=== PATIENT | female | born 1940 | race Caucasian/White ===

== ENCOUNTER 2016-07-04 11:17 | Inpatient (IN) | payer MEDICARE, BC ==
--- NOTE | 2016-07-04 11:50 | ERNOTE ---
Dyspnea - General Presenting Symptoms: shortness of breath Time Seen by Provider: 07/04/16 11:28 Source: patient Exam Limitations: no limitations - Immun/Allergies/Home Medications Immunizations: IMMUNIZATION HX History of Influenza Vaccine No Hx Pneumococcal Vaccination No Allergies/Adverse Reactions: Allergies Penicillins Allergy (Severe, Verified 07/04/16 11:26) HIVES, TONGUE AND LIP SWELLING baclofen Adverse Reaction (Verified 07/04/16 15:49) Home Medications: HOME MEDICATIONS Aspirin [Aspirin Enteric Coated] 81 mg PO DAILY 07/23/14 [Last Taken Unknown] Calcium Carbonate/Vitamin D3 [Calcium 600 + Vit D 400 Tablet] 1 tab PO QID 07/23 [Last Taken Unknown] Cyanocobalamin [Vitamin B-12] 1,000 mcg PO DAILY 07/23/14 [Last Taken Unknown] Docusate Sodium [Colace] 100 mg PO DAILY 07/23/14 [Last Taken Unknown] Losartan Potassium [Cozaar] 12.5 mg PO DAILY 07/23/14 [Last Taken Unknown] Omeprazole [Prilosec] 40 mg PO DAILY 07/23/14 [Last Taken Unknown] glipiZIDE [Glucotrol] 2.5 mg PO BIDAC 07/23/14 [Last Taken Unknown] metFORMIN HCL [Glucophage] 250 mg PO BIDWM 07/23/14 [Last Taken Unknown] Albuterol Sulfate [Proair Hfa] 2 puff IH Q4H PRN 02/28/15 [Last Taken Unknown] Montelukast Sodium [Singulair] 10 mg PO DAILY #30 tab 03/05/15 [Last Taken Unknown] Acetaminophen [Tylenol] 500 - 1,000 mg PO Q6H PRN 08/02/15 [Last Taken Unknown] Albuterol Sulfate 3 ml IH Q4H PRN 08/02/15 [Last Taken Unknown] Blood Sugar Diagnostic, Drum [Accu-Chek Compact] 1 each MC DAILY 08/02/15 [Last Taken Unknown] Fexofenadine/Pseudoephedrine [Jazmyne-D 24 Hour Tablet] 1 each PO DAILY [Last Taken Unknown] Albuterol Sulfate [Albuterol Sulfate 2.5 MG/0.5ML] 1 vial IH Q4H PRN 07/04/16 [ Last Taken Unknown] Atenolol [Tenormin] 25 mg PO BID 07/04/16 [Last Taken Unknown] Budesonide [Pulmicort Respules] 0.5 mg IH DAILY 07/04/16 [Last Taken Unknown] Cholecalciferol (Vitamin D3) [Vitamin D3] 5,000 unit PO DAILY 07/04/16 [Last Taken Unknown] Fluticasone/Salmeterol [Advair 250-50 Diskus] 1 puff IH BID 07/04/16 [Last Taken Unknown] Halobetasol Propionate [Ultravate] 15 gm TP DAILY 07/04/16 [Last Taken Unknown] Magnesium 250 mg PO QID 07/04/16 [Last Taken Unknown] Naproxen [Naprosyn] 500 mg PO BID 07/04/16 [Last Taken Unknown] Ropinirole HCl 5 mg PO HS 07/04/16 [Last Taken Unknown] Temazepam [Restoril] 30 mg PO HS 07/04/16 [Last Taken Unknown] Tizanidine HCl 2 mg PO BID 07/04/16 [Last Taken Unknown] - History of Present Illness Narrative: Patient started getting sick three days ago with a sudden onset of shortness of breath and diarrhea. The diarrhea was about five times a day but has resolved now, no BM today, no vomiting, generalized mild abdominal pain. The shortness of breath is worse with minimal exertion,she can barely make it across the room Date (Duration): 07/01/16 Time (Timing): 15:00 Initiating event: Reports: upper resp illness. Denies: out of meds Frequency of episodes: Reports: no prior episodes Associated Symptoms-Dyspnea: Reports: fever/chills, cough. Denies: chest pain/ discomfort Review of Systems - Review of Systems Constitutional: Present: fever, chills. Absent: recent illness Respiratory: Present: See HPI, cough - slight,dry Cardiology: Absent: chest pain Gastrointestinal/Abdominal: Present: See HPI. Absent: nausea, vomiting Genitourinary: Present: dysuria - Patient's Past Medical History Patient History - Medical: Arthritis, Diabetes Type 2, Other Patient History - Cardiac/Respiratory: Asthma, Hypertension, Hyperlipidemia Patient History - Cancer: Leukemia - CLL Patient History - Surgical Procedures: Appendectomy, Cholecystectomy, Hysterectomy, Other - Social History Living Situations: spouse Smoking Status: Former smoker Alcohol Use: occasionally - Immunizations Hx Pneumococcal Vaccination: No History of Influenza Vaccine: No Physical Exam - Physical Exam General Appearance: Present: wd/wn, alert, no apparent distress Ears, Nose, Throat: Present: normal pharynx Neck: Present: normal inspection Respiratory: Present: no accessory muscle use, chest nontender, decreased breath sounds, rales - few left base Cardiovascular/Chest: Present: regular rate, rhythm, no murmur Gastrointestinal/Abdominal: Present: normal bowel sounds, nontender, soft, distended Extremity Exam: Present: pedal edema - trace Neurological Exam: Present: alert, oriented, normal mood/affect Skin Exam: Present: normal color, warm/dry ED Progress - Results and Orders Patient's Lab Results:: I have reviewed the patient's lab results. - Vital Signs Patient's Vital Signs:: I have reviewed the patient's vital signs. Vital Signs: Vital Signs 07/04/16 07/04/16 11:21 11:25 Temperature 36.4 C L Pulse Rate 74 74 Respiratory 24 H Rate Blood Pressure 124/61 O2 Sat by Pulse 88 L Oximetry - EKG EKG: NSR, unchanged from - 06/19/16, other - no acute changes EKG read: Interp. by me - X-Ray X-Ray #1 X-Ray: chest - left lower lobe pneumonia Interpretation: Reviewed by me X-Ray #2 X-Ray: abdomen - no acute findings Interpretation: Reviewed by me - CT/Ultrasound CT/Ultrasound Narrative: CT chest: no PE, see report - Progress/Reassessment Chief Complaint: Dyspnea Progress Note-Subjective: 07/04/16 12:33 discussed results and plan to get CT 07/04/16 13:48 discussed patient with richard Moffett to admit for pneumonia CT pending, start IV fluid 07/04/16 14:31 patient feeling better after neb treatment, discussed CT results pneumonia severity index 95 (class IV) Departure Clinical Impression: Pneumonia Qualifiers: Pneumonia type: due to unspecified organism Laterality: left Lung location: lower lobe of lung Qualified Code(s): J18.1 - Lobar pneumonia, unspecified organism - Departure Disposition: [facility] Condition: Fair
[2016-07-04 11:55] LABS: Hematocrit 34.6 % (37.0-47.0); Hemoglobin 11.4 gm/dL (12.5-16.0); Mean Cell Volume 92.8 fl (78-100); Mean Corpuscular Hemoglobin 30.6 pg (27-31); Mean Corpuscular Hgb Conc 32.9 g/dl (32-36); Mean Platelet Volume 10.8 fl (6.0-9.5); Platelet Count 261 K/mm3 (150-450); Red Blood Count 3.73 M/mm3 (4.2-5.4); Red Cell Distribution Width 14.3 % (11.5-14.0)
[2016-07-04 12:00] LABS: White Blood Count 34.4 K/mm3 (4.0-10.5)
[2016-07-04 12:01] LABS: Total Cells Counted 100
[2016-07-04 12:09] LABS: Troponin I Less than 0.017 ng/ml (0.00-0.10)
[2016-07-04 12:11] LABS: ALT 25 U/L (19-67); AST 13 U/L (0-48); Albumin * 2.6 gm/dl (3.4-5.0); Alkaline Phosphatase * 112 U/L (50-170); Anion Gap 12.4 mmol/L (6.8-13.8); BNP * 1418 pg/mL (5-550); BUN/Creatinine Ratio 35.9 (9.0-21.6); Bilirubin, Total 0.4 mg/dL (0.0-1.1); Blood Urea Nitrogen 55 mg/dL (3-23); Ca. Corrected For Albumin 9.3 mg/dL (8.4-10.2); Calcium * 8.5 mg/dL (7.9-10.9); Carbon Dioxide 27.6 mmol/L (24-32.6); Chloride 102 mmol/L (97-106); Glucose * 117 mg/dL (70-110); Sodium 138 mmol/L (132-142); Total Protein 6.3 gm/dL (6.2-8.2)
[2016-07-04 12:16] LABS: Band 9 % (0-2.0); Lymphocyte 18 % (20-51); Monocyte 2 % (0-9); Neutrophil 71 % (42-75); Neutrophil # 24.4 K/mm3 (1.3-6.0)
[2016-07-04 12:18] LABS: Platelet Estimate Normal (NORMAL)
[2016-07-04 12:19] LABS: Toxic Granulation 2+
[2016-07-04 12:20] LABS: Dohle Bodies 1+; RBC Morphology Normal (NORMAL)
[2016-07-04] MEDS ORDERED: ALBUTEROL SULFATE 2.5 MG/0.5 ML VIAL.NEB IH ONE ×2 (12:32→12:34)
[2016-07-04] MEDS ORDERED: LEVOFLOXACIN/D5W 750 MG/150 ML BAG IV SCH (12:45)
[2016-07-04] MEDS ORDERED: NORMAL SALINE 1,000 ML IV ONE (13:49)
[2016-07-04] MEDS ORDERED: ACETAMINOPHEN 325 MG TABLET PO PRN (15:08)
--- OUTSIDE RECORDS SUMMARY | 2016-07-04 15:58 | XMS REPORT | Continuity of Care Document ---
:1940 Author Organization [facility] ([facility]) [place] [address] Phone [phone] Care Team Providers Name Role Phone Davis Irby Primary Care Provider [phone] Source Comments This disclosure is being made pursuant to the Care Everywhere program, applicable federal and state laws, and may not contain all informaitonavailable regarding this patient.[facility] ([facility]) Active Allergies and Adverse Reactions Allergen Noted Date Severity Reactions Comments Aspirin Stomach Pain Penicillin G Angioedema Current Medications Prescription Sig. Disp. Refills Start Date End Date Status atorvastatin 40 mg 40 mg daily 3 03/09/2015 Active tablet PULMICORT 1 mg/2 mL 11 03/08/2015 Active nebulizer suspension benzonatate 100 mg 0 02/01/2015 Active capsule SUPPLY FREESTYLE LITE 3 02/12/2015 Active test strips budesonide 0.5 mg/2 0 02/01/2015 Active mL nebulizer suspension glipiZIDE 5 mg tablet 3 02/12/2015 Active HYDROcodone-acetamino 0 03/05/2015 Active phen 5-325 mg per tablet SUPPLY FREESTYLE 3 02/12/2015 Active lancets losartan 25 mg tablet 11 03/29/2015 Active metFORMIN 500 mg 2 02/12/2015 Active tablet montelukast 10 mg 11 03/29/2015 Active tablet omeprazole 40 mg Patient is 11 03/09/2015 Active enteric coated taking this capsule over the counter. baclofen 20 mg tablet Take 20 mg by Active mouth 3 times daily. rOPINIRole 5 mg Take 5 mg by Active tablet mouth at bedtime. clindamycin 300 mg 0 03/25/2015 06/19/2016 Discontinued capsule predniSONE 20 mg 0 03/05/2015 06/19/2016 Discontinued tablet trimethoprim-sulfamet 0 03/25/2015 06/19/2016 Discontinued hoxazole 160-800 mg per tablet Active Problems Problem Noted Date CLL (chronic lymphocytic leukemia) 06/28/2015 Most Recent Encounters Date Type Specialty Providers Description 06/19/2016 Hospital Encounter Hematology and Edward Dumas Dx: SOB ( shortness Oncology O, MD of breath) (Primary Dx) Social History Tobacco Use Types Packs/Day Years Used Date Former Smoker Smokeless Tobacco: Never Used Last Filed Vital Signs Vital Sign Reading Time Taken Blood Pressure 140/86 06/19/2016 9:57 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 Pulse 104 06/19/2016 9:57 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 WORKER Temperature 36.6 C (97.9 F) 06/19/2016 9:57 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 Respiratory Rate 18 06/19/2016 9:57 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 WORKER Height 1.575 m (5' 2") 06/19/2016 9:57 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 WORKER Weight 76.204 kg (168 lb) 06/19/2016 9:57 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 WORKER Body Mass Index 30.72 06/19/2016 9:57 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 WORKER Oxygen Saturation 96% 06/19/2016 9:57 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 WORKER Plan of Care Date Type Specialty Providers Description 08/02/2016 Appointment Heart and Vascular [facility], Chief Comp: Patient MD Reported Reason For [address] Visit [place] [phone] (Fax) Health Maintenance Due Date Last Done Comments Hepatitis B Vaccine (1 of 3 - Primary Series) 1940 Tdap Vaccine 11/09/1951 Lipid Disorder Screening 1958 Td Vaccine 1958 Mammogram 1980 Colonoscopy 1990 Zoster Vaccine 2000 Osteoporosis Screening (DXA Bone Density) 2005 Pneumococcal Vaccine (1 of 2 - PCV13) 2005 Influenza Vaccine: Seasonal (#1) 12/06/2015 Results from Last 3 Months Not on file
--- OUTSIDE RECORDS SUMMARY | 2016-07-04 16:25 | XMS REPORT | Continuity of Care Document ---
:1940 Author Organization [facility] ([facility]) Address [place] [address] [place] [address] Phone [phone] Care Team Providers Name Role Phone Davis Irby Primary Care Provider [phone] Source Comments This disclosure is being made pursuant to the Care Everywhere program, applicable federal and state laws, and may not contain all informaitonavailable regarding this patient.[facility] ([facility]) Active Allergies and Adverse Reactions Allergen Noted [...] Taken Blood Pressure 140/86 06/19/2016 9:57 AM FLOOR HAND Pulse 104 06/19/2016 9:57 AM FLOOR HAND Temperature 36.6 C (97.9 F) 06/19/2016 9:57 AM FLOOR HAND Respiratory Rate 18 06/19/2016 9:57 AM FLOOR HAND Height 1.575 m (5' 2") 06/19/2016 9:57 AM FLOOR HAND Weight 76.204 kg (168 lb) 06/19/2016 9:57 AM FLOOR HAND Body Mass Index 30.72 06/19/2016 9:57 AM FLOOR HAND Oxygen Saturation 96% 06/19/2016 9:57 AM FLOOR HAND Plan of Care Date Type Specialty Providers Description 08/02/2016 Appointment Heart and Vascular [facility], Chief Comp: Patient MD Reported Reason For [address] Visit [place] [phone] (Fax) Health Maintenance Due Date Last Done [...]
--- NOTE | 2016-07-04 17:36 | HP ---
Chief Complaint - Chief Complaint Date of Service: 07/04/16 Chief Complaint: fever, chills , pleuritic chest pain from 07/01/16. History of Present Illness: The patient is a 75-year-old WF with a H/O HTN, T2DM, GERD, RLS, CLL, chronic LBP, asthma/COPD who started having fevers, chills since 07/01/2016. This was followed by diarrhea and left-sided pleuritic chest pain which gradually worsened which prompted her to come to the ER. X-rays revealed left lower lobe pneumonia. Because of persistent hypoxia, patient underwent a CT per PE protocol on 2016. This confirmed the presence of left lower lobe pneumonia and no evidence of a PE. Other significant findings were WBC 34.4K, 9% bands, BUN/CR 55/1.53.[Per patient WBC runs about 20 K due to CLL] I Patient was admitted for further care and treatment. 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 Insomnia. Additional Info: PAST SURGICAL HISTORY: Tonsillectomy, appendectomy, cholecystectomy, hysterectomy, LT breast lumpectomy , colonoscopy. Patient History - Other: None LMP (females 10-50): Menopausal - Family History Mother Family History - Medical: - 77stroke from receiving RX for CLL Father Family History - Medical: - 70's - multiple myeloma Brother Family History - Medical: - 60glioblastoma - Social History Living Situations: home Abuse History: No History of abuse Psych History: No pertinent hx Smoking Status: Former smoker - /2 PPDx 53 years; quit in 2009. Have you smoked in the past 12 months: No Alcohol Use: occasionally Drug Use: none - Immunizations Hx Pneumococcal Vaccination: No History of Influenza Vaccine: No Review Of Systems (GEN) - Review of Systems Generalized/Overall Review: Present: Weakness, Chills, Fever Respiratory: Present: Cough, Shortness of Breath, Other - pleuritic CP Abdominal: Present: Diarrhea - poor oral appetite.. Absent: Nausea, Vomiting Immunizations: IMMUNIZATION HX History of Influenza Vaccine No Hx Pneumococcal Vaccination No Allergies/Adverse Reactions: Allergies Allergy/AdvReac Type Severity Reaction Status Date / Time Penicillins Allergy Severe HIVES, Verified 07/04/16 11:26 TONGUE AND LIP SWELLING baclofen AdvReac Verified 07/04/16 15:49 Home Medications: HOME MEDICATIONS Aspirin [Aspirin Enteric Coated] 81 mg PO DAILY 07/23/14 [Last Taken Unknown] Calcium Carbonate/Vitamin D3 [Calcium 600 + Vit D 400 Tablet] 1 tab PO QID 07/23 [Last Taken Unknown] Cyanocobalamin [Vitamin B-12] 1,000 mcg PO DAILY 07/23/14 [Last Taken Unknown] Docusate Sodium [Colace] 100 mg PO DAILY 07/23/14 [Last Taken Unknown] Losartan Potassium [Cozaar] 12.5 mg PO DAILY 07/23/14 [Last Taken Unknown] Omeprazole [Prilosec] 40 mg PO DAILY 07/23/14 [Last Taken Unknown] glipiZIDE [Glucotrol] 2.5 mg PO BIDAC 07/23/14 [Last Taken Unknown] metFORMIN HCL [Glucophage] 250 mg PO BIDWM 07/23/14 [Last Taken Unknown] Albuterol Sulfate [Proair Hfa] 2 puff IH Q4H PRN 02/28/15 [Last Taken Unknown] Montelukast Sodium [Singulair] 10 mg PO DAILY #30 tab 03/05/15 [Last Taken Unknown] Acetaminophen [Tylenol] 500 - 1,000 mg PO Q6H PRN 08/02/15 [Last Taken Unknown] Albuterol Sulfate 3 ml IH Q4H PRN 08/02/15 [Last Taken Unknown] Blood Sugar Diagnostic, Drum [Accu-Chek Compact] 1 each MC DAILY 08/02/15 [Last Taken Unknown] Fexofenadine/Pseudoephedrine [Jazmyne-D 24 Hour Tablet] 1 each PO DAILY [Last Taken Unknown] Albuterol Sulfate [Albuterol Sulfate 2.5 MG/0.5ML] 1 vial IH Q4H PRN 07/04/16 [ Last Taken Unknown] Atenolol [Tenormin] 25 mg PO BID 07/04/16 [Last Taken Unknown] Budesonide [Pulmicort Respules] 0.5 mg IH DAILY 07/04/16 [Last Taken Unknown] Cholecalciferol (Vitamin D3) [Vitamin D3] 5,000 unit PO DAILY 07/04/16 [Last Taken Unknown] Fluticasone/Salmeterol [Advair 250-50 Diskus] 1 puff IH BID 07/04/16 [Last Taken Unknown] Halobetasol Propionate [Ultravate] 15 gm TP DAILY 07/04/16 [Last Taken Unknown] Magnesium 250 mg PO QID 07/04/16 [Last Taken Unknown] Naproxen [Naprosyn] 500 mg PO BID 07/04/16 [Last Taken Unknown] Ropinirole HCl 5 mg PO HS 07/04/16 [Last Taken Unknown] Temazepam [Restoril] 30 mg PO HS 07/04/16 [Last Taken Unknown] Tizanidine HCl 2 mg PO BID 07/04/16 [Last Taken Unknown] Exam - Exam Vital Signs: Vital Signs - Last Taken Temp 36.4 C L 07/04/16 15:49 Pulse 72 07/04/16 15:49 Resp 24 H 07/04/16 15:49 BP 134/73 07/04/16 15:49 Pulse Ox 96 07/04/16 15:49 Constitutional: Present: Elderly, Overweight - looks ill on O2 ENT Exam: Present: hearing grossly normal, moist mucous membranes Eye Exam: bilateral eye: normal inspection Neck: Present: normal inspection, trachea midline Respiratory: Present: rales - RT side of lung. Absent: no accessory muscle use Cardiovascular/Chest: Present: regular rate, rhythm. Absent: tachycardia Peripheral Pulses: carotid (R): 2+, carotid (L): 2+ Abdomen: Present: Normal bowel sounds, soft, nontender, nondistended, obese /Rectal: Present: Exam deferred Extremity: Present: normal range of motion, normal inspection, no pedal edema Skin Exam: Present: normal color, warm/dry Neurologic: Present: alert, oriented x 3 Appearance: Present: appropriate appearance, appropriate insight, neat, no memory impairment Eye contact: Present: cooperative, good eye contact, normal speech Diagnostic Studies: Laboratory Tests 07/04/16 11:44 WBC 34.4 H Hgb 11.4 L Hct 34.6 L Neutrophils % (Manual) 71 Band Neuts % (Manual) 9 H Lymphocytes % (Manual) 18 L 07/04/16 11:44 Plasma Sodium 138 Potassium 4.0 Chloride 102 Carbon Dioxide 27.6 BUN 55 H D Creatinine 1.53 H D Est GFR (Non-Af Amer) 35 L D Calcium Adj for Albumin 9.3 Total Bilirubin 0.4 AST 13 ALT 25 Alkaline Phosphatase 112 Total Protein 6.3 Albumin 2.6 L 07/04/16 07/04/16 11:30 11:44 D-Dimer 1.26 H Lactic Acid, Venous 1.1 Troponin I < 0.017 B-Natriuretic Peptide 1418 H Influenza Type A Ag Negative Influenza Type B Ag Negative CXR: PA and lateral: 07/04/2016: 11:36 There is dense consolidation with air bronchograms in the left lower lobe. Recommend follow-up CXR to resolution of this consolidation to exclude underlying pathology. Borderline cardiomegaly. Scattered granuloma. Vascularity is prominent but WNL. IMPRESSION: LEFT LOWER LOBE PNEUMONIA. Chest CT per PE protocol: 07/04/2016: 12:29 IMPRESSION: 1. No definite CT evidence for acute PE. 2. Suboptimal opacification of the thoracic aorta for angiographic evaluation without obvious acute findings. 3. Left lower lobe consolidation. Differential diagnoses includes pneumonia versus malignancy. Correlate clinically. Assessment/Plan - Narrative Narrative: ASSESSMENT/PLAN: 1. Left lower lobe pneumonia: Levofloxacin 750 mg IV daily. Sputum for C/S. Cornet every 2 hours while awake. Recheck CBC on 07/05/2016 2. Dehydration: Patient has elevated BUN/CR 55/1.53 most likely secondary to poor oral intake/ diarrhea-on normal saline at 100 mL an hour. Recheck BMP on 07/05/2016. 3. Hypoxia: On 2 L O2; respiratory treatments with DuoNeb 4 times a day as needed. 4. Chronic medical problems: Other chronic medical problems including HTN, T2 DM, chronic LBP, CLL, GERD reviewed and stable.
[2016-07-04] MEDS ORDERED: ACETAMINOPHEN 500 MG TABLET PO PRN (17:43)
[2016-07-04] MEDS: ALBUTEROL SULFATE 2.5 MG/0.5 ML VIAL.NEB IH SCH (20:10)
[2016-07-04] MEDS: rOPINIRole HCL 1 MG TABLET PO SCH (21:20)
[2016-07-04] MEDS: TEMAZEPAM 15 MG CAPSULE PO SCH (21:22)
[2016-07-04] MEDS ORDERED: NORMAL SALINE 1,000 ML IV PRN (22:22)
[2016-07-05] MEDS ORDERED: DEXTROSE 50%-WATER 50 ML SYRG IV ONE (03:57)
[2016-07-05] MEDS: ALBUTEROL SULFATE 2.5 MG/0.5 ML VIAL.NEB IH PRN ×2 (05:07→22:47)
[2016-07-05 05:36] LABS: Hematocrit 36.9 % (37.0-47.0); Hemoglobin 11.4 gm/dL (12.5-16.0); Mean Cell Volume 94.4 fl (78-100); Mean Corpuscular Hemoglobin 29.2 pg (27-31); Mean Corpuscular Hgb Conc 30.9 g/dl (32-36); Mean Platelet Volume 10.2 fl (6.0-9.5); Platelet Count 284 K/mm3 (150-450); Red Blood Count 3.91 M/mm3 (4.2-5.4); Red Cell Distribution Width 14.6 % (11.5-14.0); White Blood Count 23.9 K/mm3 (4.0-10.5)
[2016-07-05] MEDS: DEXTROSE 5%-0.5 NORMAL SALINE 1,000 ML IV PRN ×2 (05:38→16:09)
[2016-07-05 05:44] LABS: Anion Gap 10.3 mmol/L (6.8-13.8); BUN/Creatinine Ratio 30.6 (9.0-21.6); Calcium * 8.8 mg/dL (7.9-10.9); Carbon Dioxide 27.3 mmol/L (24-32.6); Estimated Creat Clear 34.6; Potassium 3.6 mmol/L (3.4-4.6); Total Cells Counted 100
[2016-07-05 06:10] LABS: Atypical (Reactive) Lymph 6 % (0-2); Band 1 % (0-2.0); Eosinophil 1 % (0-3); Lymphocyte 44 % (20-51); Monocyte 4 % (0-9); Neutrophil 44 % (42-75); Neutrophil # 10.5 K/mm3 (1.3-6.0)
[2016-07-05 06:11] LABS: Platelet Estimate Normal (NORMAL); RBC Morphology Normal (NORMAL)
[2016-07-05] MEDS ORDERED: ALBUTEROL SULFATE 200 PUFF INHALER IH PRN (06:23)
[2016-07-05] MEDS: PANTOPRAZOLE SODIUM 40 MG TABLET.EC PO SCH (07:01)
[2016-07-05] MEDS: ALBUTEROL SULFATE 2.5 MG/0.5 ML VIAL.NEB IH SCH ×3 (07:16→19:55)
[2016-07-05] MEDS ORDERED: BUDESONIDE 0.5 MG/2 ML VIAL.NEB IH SCH (09:00)
[2016-07-05] MEDS: ASPIRIN 81 MG TABLET.DR PO SCH (09:43)
[2016-07-05] MEDS: LOSARTAN POTASSIUM 50 MG TABLET PO SCH (09:43)
[2016-07-05] MEDS: FLUTICASONE/SALMETEROL 14 PUFF DISK.W.DEV IH SCH ×2 (09:43→20:11)
[2016-07-05] MEDS ORDERED: LEVOFLOXACIN/D5W 750 MG in Premix Bag 1 BAG IV SCH (13:00)
[2016-07-05] MEDS: SACCHAROMYCES BOULARDII 250 MG CAPSULE PO SCH ×2 (14:22→20:10)
--- NOTE | 2016-07-05 16:15 | PN ---
Subjective - Date and Time Seen Date: 07/05/16 Time: 16:14 Subjective Narrative: feels better, appetite and pleuritic chest pain are gradually improving. Able to ambulate. Objective - Review of Systems Generalized/Overall Review: Reports: Weakness, Fatigue Respiratory: Reports: Cough, Shortness of Breath Cardiac: Reports: Chest Pain. Denies: Edema, Palpitations Abdominal: Denies: Nausea, Vomiting - Vitals Vitals: Last Vital Signs Temp 36.4 C L 07/05/16 14:48 Pulse 92 07/05/16 14:48 Resp 20 07/05/16 14:48 BP 145/79 07/05/16 14:48 Pulse Ox 93 07/05/16 14:48 - Abnormal Lab Findings Abnormal Lab Findings: Laboratory Tests 07/05/16 05:05 WBC 23.9 H D Hgb 11.4 L Hct 36.9 L Plt Count 284 Neutrophils % (Manual) 44 Band Neuts % (Manual) 1 07/05/16 05:05 Plasma Sodium 139 Potassium 3.6 Chloride 105 Carbon Dioxide 27.3 BUN 34 H Creatinine 1.11 Est GFR (Non-Af Amer) 51 L D Calcium 8.8 - Exam Constitutional: Present: Elderly, Overweight - alert and oriented x3, cooperative. ENT Exam: Present: hearing grossly normal, moist mucous membranes Neck: Present: supple, trachea midline Respiratory: Present: crackles - LT lower lung; RT lung clear. Cardiovascular/Chest: Present: regular rate, rhythm. Absent: tachycardia Abdomen: Present: Normal bowel sounds, soft, nontender Extremity: Present: non-tender, no pedal edema Thoughts: Present: normal mood /affect Assessment/Plan Plan Narrative: 1. Left lower lobe pneumonia: Levofloxacin 750 mg IV daily day #2. Continue Cornet every 2 hours. WBC has improved from 34.4[07/04/16] --> 23.9[07/05/16]. DVT prophylaxis on Lovenox. 2. Dehydration: Most likely secondary to poor oral intake/diarrhea-on normal saline at 100 mL an hour. BUN/CR 55/1.53[07/04/2016] has improved with IV fluids to 34/1.11[05/2016] 3. Hypoxia: On 2 L O2- Respiratory to try to wean to room air ; respiratory treatments with DuoNeb 4 times a day as needed. 4. Chronic medical problems: Other chronic medical problems including HTN, T2 DM, chronic LBP, CLL, GERD reviewed and stable.
[2016-07-05] MEDS: ACETAMINOPHEN 325 MG TABLET PO PRN (20:09)
[2016-07-05] MEDS: rOPINIRole HCL 1 MG TABLET PO SCH (20:11)
[2016-07-05] MEDS: TEMAZEPAM 15 MG CAPSULE PO SCH (20:51)
[2016-07-06 06:19] LABS: Anion Gap 13.6 mmol/L (6.8-13.8); BUN/Creatinine Ratio 17.6 (9.0-21.6); Calcium * 9.5 mg/dL (7.9-10.9); Carbon Dioxide 26.1 mmol/L (24-32.6); Estimated Creat Clear 37.7; Potassium 3.7 mmol/L (3.4-4.6)
[2016-07-06] MEDS: PANTOPRAZOLE SODIUM 40 MG TABLET.EC PO SCH (06:49)
[2016-07-06] MEDS: ALBUTEROL SULFATE 2.5 MG/0.5 ML VIAL.NEB IH SCH ×3 (07:23→18:22)
[2016-07-06] MEDS: DEXTROSE 5%-0.5 NORMAL SALINE 1,000 ML IV PRN (09:06)
[2016-07-06] MEDS: FLUTICASONE/SALMETEROL 14 PUFF DISK.W.DEV IH SCH ×2 (09:08→21:24)
[2016-07-06] MEDS: LOSARTAN POTASSIUM 50 MG TABLET PO SCH (09:09)
[2016-07-06] MEDS: ASPIRIN 81 MG TABLET.DR PO SCH (09:09)
[2016-07-06] MEDS: SACCHAROMYCES BOULARDII 250 MG CAPSULE PO SCH ×2 (09:09→21:24)
[2016-07-06] MEDS ORDERED: ALBUTEROL SULFATE 2.5 MG/0.5 ML VIAL.NEB IH PRN (11:26)
--- NOTE | 2016-07-06 11:32 | PN ---
Subjective - Date and Time Seen Date: 07/06/16 Time: 06:40 Subjective Narrative: SOB better. Cough was never severe, but it is also better. CHIN better. Good appetite. Objective - Review of Systems Generalized/Overall Review: Reports: Malaise EENTM: Reports: No Symptoms Reported Respiratory: Reports: Cough, Shortness of Breath Cardiac: Reports: No Symptoms Reported Abdominal: Reports: No Symptoms Reported Genitourinary Symptoms: Reports: No Symptoms Reported Musculoskeletal Complaints: Reports: No Symptoms Reported Neurological: Reports: No Symptoms Reported Skin: Reports: No Symptoms Reported Endocrine: Reports: No Symptoms Reported Misc: All systems neg except as marked - Vitals Vitals: Last Vital Signs Selected Entries 07/06/16 02:42 Temperature 36.9 C Temperature Oral Source Pulse Rate 104 H Respiratory 18 Rate Respiratory Normal Depth Blood Pressure 141/84 Blood Pressure Sitting Position O2 Sat by Pulse 92 Oximetry Oxygen Delivery Room Air Method - Abnormal Lab Findings Abnormal Lab Findings: Abnormal Lab Results 07/06/16 Range/Units 05:59 Est GFR (Non-Af Amer) 56 L (60-130) mL/min Random Glucose 134 H D (70-110) mg/dL - Exam Constitutional: Present: Alert, Oriented x3, Cooperative, Well developed, Well nourished, No distress - slightly sob at rest ENT Exam: Present: normal ENT inspection, hearing grossly normal Neck: Present: normal inspection Respiratory: Present: lungs clear, no respiratory distress Cardiovascular/Chest: Present: regular rate, rhythm, no murmur Abdomen: Present: Normal bowel sounds, soft, nontender, nondistended, no rebound tenderness, no hepatospenomegaly, no masses Extremity: Present: normal inspection, no pedal edema Skin Exam: Present: normal color, warm/dry, no cyanosis Neurologic: Present: alert, oriented x 3 Appearance: Present: appropriate appearance, appropriate insight, neat, no memory impairment Eye contact: Present: cooperative, good eye contact, normal speech Thoughts: Present: normal thought pattern Assessment/Plan Plan Narrative: Continue antibiotics. Follow labs. Home in 1-2 days. - Problems/Diagnosis (1) Pneumonia Problem: Acute Qualifiers: Pneumonia type: due to unspecified organism Laterality: left Lung location: lower lobe of lung Qualified Code(s): J18.1 - Lobar pneumonia, unspecified organism (2) CLL (chronic lymphocytic leukemia) Problem: Chronic (3) Diabetes Problem: Chronic Qualifiers: Diabetes mellitus type: type 2 Diabetes mellitus complication status: without complication Diabetes mellitus correction insulin use: without extermination supervisor use Qualified Code(s): E11.9 - Type 2 diabetes mellitus without complications
[2016-07-06] MEDS ORDERED: LEVOFLOXACIN/D5W 150 ML IV SCH (13:00)
[2016-07-06] MEDS: ACETAMINOPHEN 325 MG TABLET PO PRN (13:31)
[2016-07-06 14:42] LABS: BUN/Creatinine Ratio 15.9 (9.0-21.6)
[2016-07-06] MEDS ORDERED: ENOXAPARIN SODIUM 40 MG/0.4 ML SYRG SC SCH (18:00)
[2016-07-06] MEDS: TEMAZEPAM 15 MG CAPSULE PO SCH (21:25)
[2016-07-06] MEDS: rOPINIRole HCL 1 MG TABLET PO SCH (21:25)
[2016-07-06] MEDS: ATENOLOL 25 MG TABLET PO SCH (21:26)
[2016-07-06] MEDS: tiZANidine HCL 4 MG TABLET PO SCH (22:42)
[2016-07-07] MEDS: ALBUTEROL SULFATE 2.5 MG/0.5 ML VIAL.NEB IH SCH ×2 (06:13→13:11)
[2016-07-07] MEDS: ACETAMINOPHEN 325 MG TABLET PO PRN (06:43)
[2016-07-07] MEDS: PANTOPRAZOLE SODIUM 40 MG TABLET.EC PO SCH (06:43)
[2016-07-07] MEDS ORDERED: CHOLECALCIFEROL 5,000 UNIT TABLET PO SCH (09:00)
[2016-07-07] MEDS: FLUTICASONE/SALMETEROL 14 PUFF DISK.W.DEV IH SCH (09:08)
[2016-07-07] MEDS: SACCHAROMYCES BOULARDII 250 MG CAPSULE PO SCH (09:09)
[2016-07-07] MEDS: LOSARTAN POTASSIUM 50 MG TABLET PO SCH (09:09)
[2016-07-07] MEDS: tiZANidine HCL 4 MG TABLET PO SCH (09:09)
[2016-07-07] MEDS: ATENOLOL 25 MG TABLET PO SCH (09:10)
[2016-07-07] MEDS: ASPIRIN 81 MG TABLET.DR PO SCH (09:10)
[2016-07-07 10:07] VITALS: BP 182/84
--- NOTE | 2016-07-07 13:19 | DS ---
(1) Pneumonia Problem: Acute Qualifiers: Pneumonia type: due to unspecified organism Laterality: left Lung location: lower lobe of lung Qualified Code(s): J18.1 - Lobar pneumonia, unspecified organism (2) CLL (chronic lymphocytic leukemia) Problem: Chronic (3) Diabetes Problem: Chronic Qualifiers: Diabetes mellitus type: type 2 Diabetes mellitus complication status: without complication Diabetes mellitus half-way insulin use: without half-way use Qualified Code(s): E11.9 - Type 2 diabetes mellitus without complications Description of Stay: This patient has steadily improved with antibiotic therapy. She is now doing well enough, she can manage at home, and she very much wants to go home. She prefers the Symbicort over the Advair inhaler, so we will provide this today at the time of discharge. Procedures Performed: none Discharge Disposition: Home self care Disposition: Home self-care Condition: Good Discharge Activity: Activity as tolerated Discharge Diet: Consistent carbs Referrals: Davis Doss MD [Primary Care Provider] - Problem Oriented Discharge Instructions to Patient/Family: Community-Acquired Pneumonia, Adult, [id number] Additional Patient Instructions (free text): Followup with Dr. Irby in 1 week. CXR PA and LAT in 2 weeks. Prescriptions (Any new or edited meds): Budesonide/Formoterol Fumarate [Symbicort 160-4.5 Mcg Inhaler] 2 puff IH BID #1 inhaler Levofloxacin [Levaquin] 750 mg PO DAILY #10 tab Saccharomyces Boulardii [Florastor] 250 mg PO BID #60 capsule Complete Home Medications List: Complete Home Medication List: Aspirin [Aspirin Enteric Coated] 81 mg PO DAILY 07/23/14 Calcium Carbonate/Vitamin D3 [Calcium 600 + Vit D 400 Tablet] 1 tab PO QID 07/23 Cyanocobalamin [Vitamin B-12] 1,000 mcg PO DAILY 07/23/14 Docusate Sodium [Colace] 100 mg PO DAILY 07/23/14 Losartan Potassium [Cozaar] 12.5 mg PO DAILY 07/23/14 Omeprazole [Prilosec] 40 mg PO DAILY 07/23/14 glipiZIDE [Glucotrol] 2.5 mg PO BIDAC 07/23/14 metFORMIN HCL [Glucophage] 250 mg PO BIDWM 03/19/15 Albuterol Sulfate [Proair Hfa] 2 puff IH Q4H PRN 02/28/15 Montelukast Sodium [Singulair] 10 mg PO DAILY #30 tab 03/05/15 Acetaminophen [Tylenol] 500 - 1,000 mg PO Q6H PRN 08/02/15 Albuterol Sulfate 3 ml IH Q4H PRN 08/02/15 Blood Sugar Diagnostic, Drum [Accu-Chek Compact] 1 each MC DAILY 08/02/15 Fexofenadine/Pseudoephedrine [Jazmyne-D 24 Hour Tablet] 1 each PO DAILY Atenolol [Tenormin] 25 mg PO BID 07/04/16 Budesonide [Pulmicort Respules] 0.5 mg IH DAILY 07/04/16 Cholecalciferol (Vitamin D3) [Vitamin D3] 5,000 unit PO DAILY 07/04/16 Halobetasol Propionate [Ultravate] 15 gm TP DAILY 07/04/16 Magnesium 250 mg PO QID 07/04/16 Naproxen [Naprosyn] 500 mg PO BID 07/04/16 Ropinirole HCl 5 mg PO HS 07/04/16 Temazepam [Restoril] 30 mg PO HS 07/04/16 Tizanidine HCl 2 mg PO BID 07/04/16 Budesonide/Formoterol Fumarate [Symbicort 160-4.5 Mcg Inhaler] 2 puff IH BID #1 inhaler 07/07/16 Levofloxacin [Levaquin] 750 mg PO DAILY #10 tab 07/07/16 Saccharomyces Boulardii [Florastor] 250 mg PO BID #60 capsule 07/07/16
== END 2016-07-07 15:30 | disposition home or self-care (01) | DRG 194 ==
LOC: ER 11:17 → MS 14:46
PROVIDERS: ADMIT Allergy & Immunology; ATTEND Allergy & Immunology
DX: J18.9 Pneumonia, unspecified organism (principal); C91.10 Chronic lymphocytic leukemia of B-cell type not having achieved remission; E86.0 Dehydration; R09.02 Hypoxemia; I10 Essential (primary) hypertension; E78.5 Hyperlipidemia, unspecified; E11.9 Type 2 diabetes mellitus without complications; J44.9 Chronic obstructive pulmonary disease, unspecified; J45.909 Unspecified asthma, uncomplicated; Z87.891 Personal history of nicotine dependence; Z79.82 Long term (current) use of aspirin

== ENCOUNTER 2018-02-16 15:04 | Observation (INO) | payer BC, MEDICARE ==
[2018-02-16] MEDS ORDERED: ALBUTEROL SULFATE 2.5 MG/0.5 ML VIAL.NEB IH ONE (15:22)
--- NOTE | 2018-02-16 15:32 | ERNOTE ---
Dyspnea - General Presenting Symptoms: shortness of breath Time Seen by Provider: 02/16/18 15:11 Source: patient Exam Limitations: no limitations - Immun/Allergies/Home Medications Immunizations: IMMUNIZATION HX Immunizations Up to Date Yes History of Influenza Vaccine Yes Hx Pneumococcal Vaccination Yes Allergies/Adverse Reactions: Allergies Penicillins Allergy (Severe, Verified 01/25/18 10:10) HIVES, TONGUE AND LIP SWELLING tizanidine HCl [From Zanaflex] Adverse Reaction (Intermediate, Verified 01/25/18 10:10) MANAGER MOLECULAR side effects baclofen Adverse Reaction (Mild, Verified 01/25/18 10:10) Altered Mental Status Chicken Feathers Allergy (Intermediate, Uncoded 01/21/18 11:02) SOB Home Medications: HOME MEDICATIONS Aspirin [Aspirin Enteric Coated] 81 mg PO DAILY 07/23/14 [Last Taken 12/03/17] Montelukast Sodium [Singulair] 10 mg PO DAILY #30 tab 03/05/15 [Last Taken 12/03/17] Albuterol Sulfate 3 ml IH Q4H PRN 08/02/15 [Last Taken 12/03/17] Ropinirole HCl 5 mg PO HS 07/04/16 [Last Taken 12/03/17] Furosemide [Lasix] 40 mg PO DAILY 12/03/17 [Last Taken 12/03/17] Loratadine 10 mg PO DAILY 12/03/17 [Last Taken 12/03/17] Ranitidine HCl [Zantac] 150 mg PO DAILY 12/03/17 [Last Taken 12/03/17] albuterol sulfate HFA 90 mcg/actuation aerosol inhaler 2 inh IH Q4H PRN 01/21/18 [Last Taken Unknown] losartan 50 mg tablet 50 mg PO DAILY 01/21/18 [Last Taken Unknown] potassium 99 mg tablet 99 mg PO TID 01/21/18 [Last Taken Unknown] calcium inrr-N8-bstqeaxz-inosit-silicon 300 mg-200 unit-37.5 mg tablet 1 tab PO DAILY tab 01/25/18 [Last Taken Unknown] cholecalciferol (vitamin D3) 5,000 unit capsule 5,000 unit PO DAILY 01/25/18 [Last Taken Unknown] cyanocobalamin (vit B-12) 1,000 mcg tablet 2,000 mcg PO DAILY tab 01/25/18 [Last Taken Unknown] fluticasone 110 mcg/actuation HFA aerosol inhaler 2 inh IH BID 01/25/18 [Last Taken Unknown] glipizide ER 5 mg tablet, extended release 24 hr 2.5 mg PO DAILY 01/25/18 [Last Taken Unknown] oxygen-air delivery systems device See Dose Instructions .ROUTE .MEDSUPPLY #1 01/25/18 [Last Taken Unknown] Meloxicam 7.5 mg PO DAILY 02/16/18 [Last Taken Unknown] - History of Present Illness Narrative: Patient has a history of COPD and is on 3liters home O2. About a week ago she started to have nasal congestion, drainage, and cough with yellow sputum. Over the last 3 days she her cough got worse and she has been more short of breath also. She was started on a Z-pack four days ago with no change in symptoms, no steroids at this time. she is coming today as her O2 at home measured below 90 (usually runs in the mid 90's) and her heart rate was elevate Initiating event: Reports: upper resp illness. Denies: out of meds, exposure to smoke Frequency of episodes: Reports: frequent episodes - had two rounds of antibiotics prior to this in the last two months Modifying Factors - (Improves): Reports: rest. Denies: albuterol Modifying Factors (Worsens): Reports: activity Associated Symptoms-Dyspnea: Reports: cough, wheezing. Denies: fever/chills, chest pain/discomfort, dizziness, lightheadedness Prior Treatment: Reports: recently seen, treated by physician Review of Systems - Review of Systems Constitutional: Present: recent illness. Absent: fever EYE: Present: no symptoms reported ENT: Present: nose congestion, nasal drainage. Absent: sore throat Respiratory: Present: shortness of breath, cough Cardiology: Absent: chest pain Gastrointestinal/Abdominal: Absent: nausea, diarrhea, constipation, abdominal pain Genitourinary: Present: no symptoms reported Neurological: Absent: headache Medical History (Last Reviewed 02/16/18 @ 15:40 by Meryl Lorenzana MD) Vertigo (Resolved) RLS (restless legs syndrome) (Resolved) Osteopenia (Chronic) QUINN (obstructive sleep apnea) (Chronic) Onychomycosis (Chronic) Moderate left ventricular hypertrophy (Acute) Onset Date: ~06/07/15 Lichen sclerosus (Acute) Insomnia (Chronic) Hypertension (Chronic) Degeneration of lumbar intervertebral disc (Chronic) Onset Date: ~02/14/12 Bulging disc (Chronic) Onset Date: ~02/14/12 Asthma (Chronic) COPD (chronic obstructive pulmonary disease) Diabetes Recurrent pneumonia Chronic leukemia Onset Date: ~07/02/13 Surgical History: Surgical History (Last Reviewed 02/16/18 @ 15:40 by Meryl Lorenzana MD) Colonoscopy refused (Acute) History of appendectomy History of cholecystectomy History of hysterectomy History of lumpectomy of left breast History of tonsillectomy Hx of cholecystectomy Family History: Family History (Last Reviewed 01/25/18 @ 10:10 by Lise Moya) Mother Chronic leukemia CVA (cerebral vascular accident) Father Multiple myeloma Social History: Preferred Language Setswana Do you have any judaism or No cultural preference? Smoking Status Former smoker Abuse History No History of abuse Psych History No pertinent hx Alcohol Use none Physical Exam - Physical Exam General Appearance: Present: wd/wn, alert, no apparent distress, anxious Eye Exam: Normal inspection: bilateral Ears, Nose, Throat: Present: normal ENT inspection, normal pharynx Respiratory: Present: no respiratory distress, decreased breath sounds, expiration (prolonged), wheezing - few on left base Cardiovascular/Chest: Present: no murmur, tachycardia Gastrointestinal/Abdominal: Present: normal bowel sounds, nontender, nondistended, soft Extremity Exam: Present: no edema Neurological Exam: Present: alert, oriented, normal mood/affect Skin Exam: Present: normal color, warm/dry ED Progress - Results and Orders Patient's Lab Results:: I have reviewed the patient's lab results. - Vital Signs Patient's Vital Signs:: I have reviewed the patient's vital signs. Vital Signs: Vital Signs 02/16/18 15:12 Temperature 36.5 C Pulse Rate 122 H Respiratory Rate 21 H Blood Pressure 146/94 H O2 Sat by Pulse Oximetry 91 L - EKG EKG: NSR - sinus tachycardia EKG read: Interp. by me - Progress/Reassessment Chief Complaint: Dyspnea Progress Note-Subjective: 02/16/18 16:40 O2 sat in 94% at rest and after neb treatment 02/16/18 17:17 patient is tachycardic and tachypneic with increased O2 requirements over baseline WBC at baseline (CLL), no infiltrate, no CO2 retention elevated glucose (no recent steroids) discussed with richard Sosa to admit for observation for COPD exacerbation lantus 10 units tonight, humalog moderate sliding scale, rocephin Departure Clinical Impression: COPD exacerbation, CLL (chronic lymphocytic leukemia) Diabetes Qualifiers: Diabetes mellitus type: other specified (including ELIZABETH) Diabetes mellitus mcc insulin use: without mcc use Diabetes mellitus complication status: without complication Qualified Code(s): E13.9 - Other specified diabetes mellitus without complications - Departure Disposition: Still a patient Condition: Stable
[2018-02-16 15:45] LABS: Hematocrit 37.2 % (37.0-47.0); Mean Cell Volume 88.6 fl (78-100); Mean Corpuscular Hemoglobin 26.2 pg (27-31); Mean Corpuscular Hgb Conc 29.6 g/dl (32-36); Mean Platelet Volume 10.3 fl (8-12.5); Platelet Count 265 K/mm3 (150-450); Red Cell Distribution Width 16.3 % (11.5-14.0); White Blood Count 18.3 K/mm3 (4.0-10.5)
[2018-02-16 15:47] LABS: Total Cells Counted 100
[2018-02-16 16:00] LABS: Troponin I Less than 0.017 ng/mL (0.00-0.10)
[2018-02-16 16:01] LABS: ALT 32 U/L (19-67); AST 10 U/L (0-48); Albumin * 3.4 gm/dl (3.4-5.0); Alkaline Phosphatase * 170 U/L (50-170); Anion Gap 8.8 mmol/L (6.8-13.8); BNP * 139 pg/mL (5-550); BUN/Creatinine Ratio 12.4 (9.0-21.6); Bilirubin, Total 0.2 mg/dL (0.0-1.1); Blood Urea Nitrogen 16 mg/dL (3-23); Ca. Corrected For Albumin 9.3 mg/dL (8.4-10.2); Calcium * 9.1 mg/dL (7.9-10.9); Carbon Dioxide 29.9 mmol/L (24-32.6); Chloride 97 mmol/L (97-106); Glucose * 475 mg/dL (70-110); Potassium 3.7 mmol/L (3.4-4.6); Sodium 132 mmol/L (132-142); Total Protein 6.7 gm/dL (6.2-8.2)
[2018-02-16 16:19] LABS: Eosinophil 1 % (0-3); Lymphocyte 28 % (20-51); Monocyte 3 % (0-9); Neutrophil 68 % (42-75); Neutrophil # 12.4 K/mm3 (1.3-6.0)
[2018-02-16 16:20] LABS: Platelet Estimate Normal (NORMAL); RBC Morphology Normal (NORMAL)
[2018-02-16] MEDS ORDERED: ALBUTEROL SULFATE 2.5 MG/0.5 ML VIAL.NEB IH PRN ×2 (17:34→21:00)
[2018-02-16] MEDS ORDERED: METHYLPREDNISOLONE SOD SUCC/PF 125 MG/2 ML VIAL IV SCH ×3 (17:45→20:00)
[2018-02-16] MEDS ORDERED: ALBUTEROL SULFATE/IPRATROPIUM 3 ML NEBU IH SCH (17:45)
[2018-02-16] MEDS: ALBUTEROL SULFATE/IPRATROPIUM 3 ML NEBU IH SCH (18:45)
[2018-02-16] MEDS: INSULIN LISPRO 100 UNITS/ML VIAL SC SCH ×2 (18:59→21:39)
--- NOTE | 2018-02-16 20:19 | HP ---
Chief Complaint - Chief Complaint Date of Service: 02/16/18 Time of Service: 20:18 Chief Complaint: shortness of breath History of Present Illness: Jody Carvajal, is a 77-year-old white female, patient of Dr. Oshea in [place], with a previous medical history of COPD, diabetes mellitus type 2, chronic lymphocytic leukemia, who was admitted on 02/16/2018 because of increasing shortness of breath. One week prior to admission the patient started having some nasal congestion, sinus drainage and cough productive of greenish phlegm. She called her primary care physician who prescribed a Z-Segundo. Her symptoms did not get better and 2 days ago she started to get wheezing and increasing shortness of breath. Her oxygen saturation at home measured below 90 and she says she usually stays in the mid 90s. Today her shortness of breath was even worst and and she was tachycardic and so she went to our emergency room where she was found to have an elevated WBC at chest x-ray showed no acute cardiopulmonary findings . She was subsequently admitted under our acute COPD exacerbation protocol likely due to acute bronchitis rule out beginning pneumonia. Medical History (Last Reviewed 02/16/18 @ 19:18 by Jessica Tatum RN) Vertigo (Resolved) RLS (restless legs syndrome) (Resolved) Osteopenia (Chronic) QUINN (obstructive sleep apnea) (Chronic) Onychomycosis (Chronic) Moderate left ventricular hypertrophy (Acute) Onset Date: ~06/07/15 Lichen sclerosus (Acute) Insomnia (Chronic) Hypertension (Chronic) Degeneration of lumbar intervertebral disc (Chronic) Onset Date: ~02/14/12 Bulging disc (Chronic) Onset Date: ~02/14/12 Asthma (Chronic) Diabetes COPD (chronic obstructive pulmonary disease) Recurrent pneumonia Chronic leukemia Onset Date: ~07/02/13 Surgical History: Surgical History (Last Reviewed 02/16/18 @ 19:18 by Jessica Tatum RN) Colonoscopy refused (Acute) History of appendectomy History of cholecystectomy History of hysterectomy History of lumpectomy of left breast History of tonsillectomy Hx of cholecystectomy Family History: Family History (Last Reviewed 02/16/18 @ 19:18 by Jessica Tatum RN) Mother Chronic leukemia CVA (cerebral vascular accident) Father Multiple myeloma Social History: Patient Lives/Resources With Spouse Utilized 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 Smoking Status Former smoker Have you smoked in the past 12 No months Abuse History No History of abuse Psych History No pertinent hx Alcohol Use none Review Of Systems (GEN) - Review of Systems Generalized/Overall Review: Present: Fever. Absent: Weakness, Chills Respiratory: Present: Cough, Shortness of Breath, Wheezing Cardiac: Absent: Chest Pain, Edema, Palpitations Abdominal: Absent: Nausea, Vomiting Genitourinary: Absent: Urgency, Frequency Musculoskeletal: Absent: Joint Pain Immunizations: IMMUNIZATION HX Immunizations Up to Date Yes History of Influenza Vaccine Yes Hx Pneumococcal Vaccination Yes Allergies/Adverse Reactions: Allergies Allergy/AdvReac Type Severity Reaction Status Date / Time Penicillins Allergy Severe HIVES, Verified 01/25/18 10:10 TONGUE AND LIP SWELLING tizanidine HCl AdvReac Intermediate SAP ANALYST side Verified 01/25/18 10:10 [From Zanaflex] effects baclofen AdvReac Mild Altered Verified 01/25/18 10:10 Mental Status Chicken Feathers Allergy Intermediate SOB Uncoded 01/21/18 11:02 Home Medications: HOME MEDICATIONS Aspirin [Aspirin Enteric Coated] 81 mg PO DAILY 07/23/14 [Last Taken 02/15/18 21:00] Montelukast Sodium [Singulair] 10 mg PO DAILY #30 tab 03/05/15 [Last Taken 02/15/18 18:00] Albuterol Sulfate 3 ml IH Q4H PRN 08/02/15 [Last Taken 02/16/18 12:00] Ropinirole HCl 5 mg PO HS 07/04/16 [Last Taken 02/15/18 21:00] Loratadine 10 mg PO DAILY 12/03/17 [Last Taken 02/16/18 09:00] Ranitidine HCl [Zantac] 150 mg PO BID 12/03/17 [Last Taken 02/16/18 09:00] albuterol sulfate HFA 90 mcg/actuation aerosol inhaler 2 inh IH Q4H PRN 01/21/18 [Last Taken Unknown] losartan 50 mg tablet 50 mg PO DAILY 01/21/18 [Last Taken 02/16/18 08:00] potassium 99 mg tablet 99 mg PO DAILY 01/21/18 [Last Taken 02/15/18 21:00] cholecalciferol (vitamin D3) 5,000 unit capsule 5,000 unit PO DAILY 01/25/18 [Last Taken 02/16/18 12:00] cyanocobalamin (vit B-12) 1,000 mcg tablet 2,000 mcg PO DAILY tab 01/25/18 [Last Taken 02/16/18 12:00] fluticasone 110 mcg/actuation HFA aerosol inhaler 2 inh IH BID 01/25/18 [Last Taken 02/16/18 09:00] oxygen-air delivery systems device See Dose Instructions .ROUTE .MEDSUPPLY #1 01/25/18 [Last Taken Unknown] Furosemide [Lasix] 20 mg PO DAILY 02/16/18 [Last Taken 02/16/18 08:00] Acetaminophen [Tylenol] 1,000 mg PO Q6H PRN #30 tablet 02/17/18 [Last Taken Unknown] Doxycycline Hyclate [Vibratab] 100 mg PO BID #20 tablet 02/17/18 [Last Taken Unknown] glipiZIDE [Glucotrol Xl] 7.5 mg PO DAILY #30 tab.er.24 02/17/18 [Last Taken Unknown] predniSONE [Prednisone] 2 tab PO DAILY #14 tab 02/17/18 [Last Taken Unknown] Exam - Exam Vital Signs: Vital Signs - Last Taken Temp 36.8 C 02/16/18 17:50 Pulse 114 H 02/16/18 18:55 Resp 20 02/16/18 18:55 BP 166/105 H 02/16/18 17:50 Pulse Ox 92 L 02/16/18 18:45 Constitutional: Present: Alert, Oriented x3, Cooperative ENT Exam: Present: hearing grossly normal Eye Exam: bilateral eye: normal inspection, PERRL, EOMI Neck: Present: supple Respiratory: Present: decreased breath sounds, crackles - at bases, wheezing - occasional Cardiovascular/Chest: Present: regular rate, rhythm, no JVD, no murmur Abdomen: Present: Normal bowel sounds, soft, nontender, nondistended Extremity: Present: no pedal edema, no calf tenderness Diagnostic Studies: Abnormal Lab Results 02/16/18 02/16/18 02/16/18 Range/Units 15:37 15:37 17:05 WBC 18.3 H (4.0-10.5) K/mm3 Hgb 11.0 L (12.5-16.0) gm/dL MCH 26.2 L (27-31) pg MCHC 29.6 L (32-36) g/dl RDW 16.3 H (11.5-14.0) % Neutrophils # (Manual) 12.4 H (1.3-6.0) K/mm3 Lymphocytes # (Manual) 5.1 H (1.5-3.5) k/mm3 pO2 64.3 L (83.0-108.0) mmHg Total CO2 25.1 H (19.0-24.0) mmol/L ABG O2 Sat (Measured) 92.9 L (94.0-98.0) % Est GFR (Non-Af Amer) 43 L D (60-130) mL/min Random Glucose 475 H (70-110) mg/dL Laboratory Results WBC 18.3 K/mm3 (4.0-10.5) H 02/16/18 15:37 RBC 4.20 M/mm3 (4.2-5.4) 02/16/18 15:37 Hgb 11.0 gm/dL (12.5-16.0) L 02/16/18 15:37 Hct 37.2 % (37.0-47.0) 02/16/18 15:37 MCV 88.6 fl (78-100) 02/16/18 15:37 MCH 26.2 pg (27-31) L 02/16/18 15:37 MCHC 29.6 g/dl (32-36) L 02/16/18 15:37 RDW 16.3 % (11.5-14.0) H 02/16/18 15:37 Plt Count 265 K/mm3 (150-450) 02/16/18 15:37 MPV 10.3 fl (8-12.5) 02/16/18 15:37 Neutrophils % (Manual) 68 % (42-75) 02/16/18 15:37 Lymphocytes % (Manual) 28 % (20-51) 02/16/18 15:37 Monocytes % (Manual) 3 % (0-9) 02/16/18 15:37 Eosinophils % (Manual) 1 % (0-3) 02/16/18 15:37 Neutrophils # (Manual) 12.4 K/mm3 (1.3-6.0) H 02/16/18 15:37 Lymphocytes # (Manual) 5.1 k/mm3 (1.5-3.5) H 02/16/18 15:37 Monocytes # (Manual) 0.5 k/mm3 (0.0-1.0) 02/16/18 15:37 Eosinophils # (Manual) 0.2 k/mm3 (0.0-0.7) 02/16/18 15:37 Platelet Estimate Normal (NORMAL) 02/16/18 15:37 RBC Morphology Normal (NORMAL) 02/16/18 15:37 pCO2 38.5 mmHg (32.0-45.0) 02/16/18 17:05 pO2 64.3 mmHg (83.0-108.0) L 02/16/18 17:05 HCO3 24.0 mmol/L (21.0-28.0) 02/16/18 17:05 Total CO2 25.1 mmol/L (19.0-24.0) H 02/16/18 17:05 Base Excess -0.5 mmol/L (-2.0-3.0) 02/16/18 17:05 ABG pH 7.41 (7.35-7.45) 02/16/18 17:05 ABG O2 Sat (Measured) 92.9 % (94.0-98.0) L 02/16/18 17:05 Sodium 132 mmol/L (132-142) 02/16/18 15:37 Plasma Sodium 138 mmol/L (130-142) 02/16/18 15:37 Potassium 3.7 mmol/L (3.4-4.6) 02/16/18 15:37 Chloride 97 mmol/L (97-106) 02/16/18 15:37 Carbon Dioxide 29.9 mmol/L (24-32.6) 02/16/18 15:37 Anion Gap 8.8 mmol/L (6.8-13.8) 02/16/18 15:37 BUN 16 mg/dL (3-23) 02/16/18 15:37 Creatinine 1.29 mg/dL (0.4-1.4) 02/16/18 15:37 Est GFR (Non-Af Amer) 43 mL/min (60-130) L D 02/16/18 15:37 BUN/Creatinine Ratio 12.4 (9.0-21.6) 02/16/18 15:37 Random Glucose 475 mg/dL (70-110) H 02/16/18 15:37 Calcium 9.1 mg/dL (7.9-10.9) 02/16/18 15:37 Calcium Adj for Albumin 9.3 mg/dL (8.4-10.2) 02/16/18 15:37 Total Bilirubin 0.2 mg/dL (0.0-1.1) 02/16/18 15:37 AST 10 U/L (0-48) 02/16/18 15:37 ALT 32 U/L (19-67) 02/16/18 15:37 Alkaline Phosphatase 170 U/L (50-170) 02/16/18 15:37 Troponin I Less than 0.017 ng/mL (0.00-0.10) 02/16/18 15:37 B-Natriuretic Peptide 139 pg/mL (5-550) 02/16/18 15:37 Total Protein 6.7 gm/dL (6.2-8.2) 02/16/18 15:37 Albumin 3.4 gm/dl (3.4-5.0) 02/16/18 15:37 Assessment/Plan - Assessment/Plan (1) COPD exacerbation Assessment: likely due to acute bronchitis r/o beginning Pneumonia. Continue with IV solumedrol, breathing treatments and antibiotics. Problem: Acute (2) RLS (restless legs syndrome) Problem: Resolved (3) QUINN (obstructive sleep apnea) Problem: Chronic (4) Hypertension Problem: Chronic Qualifiers: Hypertension type: essential hypertension Qualified Code(s): I10 - Essential (primary) hypertension (5) CLL (chronic lymphocytic leukemia) Problem: Chronic (6) Diabetes Assessment: will give her Lantus and Humalog coverage SSI moderate dose. Problem: Chronic Qualifiers: Diabetes mellitus type: type 2 Diabetes mellitus chcf insulin use: without vermin exterminator use Diabetes mellitus complication status: without complication Qualified Code(s): E11.9 - Type 2 diabetes mellitus without complications
[2018-02-16] MEDS ORDERED: ALBUTEROL SULFATE 200 PUFF INHALER IH PRN (20:44)
[2018-02-16] MEDS ORDERED: FLUTICASONE PROPIONATE 120 SPRAY INHALER NS SCH (21:00)
[2018-02-16] MEDS ORDERED: METHYLPREDNISOLONE SOD SUCC/PF 40 MG/ML VIAL IV SCH (21:00)
[2018-02-16] MEDS ORDERED: INSULIN GLARGINE,HUM.REC.ANLOG 100 UNITS/ML VIAL SC SCH (21:00)
[2018-02-16] MEDS ORDERED: rOPINIRole HCL 1 MG TABLET PO SCH (21:00)
[2018-02-16] MEDS: DOXYCYCLINE HYCLATE 100 MG TABLET PO SCH (21:42)
[2018-02-17] MEDS: ALBUTEROL SULFATE/IPRATROPIUM 3 ML NEBU IH SCH ×3 (00:07→12:55)
[2018-02-17] MEDS: METHYLPREDNISOLONE SOD SUCC/PF 40 MG/ML VIAL IV SCH ×2 (01:05→07:01)
[2018-02-17] MEDS: INSULIN LISPRO 100 UNITS/ML VIAL SC SCH ×2 (06:57→11:24)
[2018-02-17] MEDS ORDERED: ACETAMINOPHEN 500 MG TABLET PO PRN (07:18)
[2018-02-17] MEDS ORDERED: INSULIN LISPRO 100 UNITS/ML VIAL SC ONE (08:20)
--- NOTE | 2018-02-17 08:56 | DS ---
(1) COPD exacerbation Problem: Acute (2) RLS (restless legs syndrome) Problem: Resolved (3) QUINN (obstructive sleep apnea) Problem: Chronic (4) Hypertension Problem: Chronic Qualifiers: Hypertension type: essential hypertension Qualified Code(s): I10 - Essential (primary) hypertension (5) CLL (chronic lymphocytic leukemia) Problem: Chronic Description of Stay: Jody Carvajal, is a 77-year-old white female, patient of Dr. Oshea in [place], with a previous medical history of COPD, diabetes mellitus type 2, chronic lymphocytic leukemia, who was admitted on 02/16/2018 because of increasing shortness of breath. One week prior to admission the patient started having some nasal congestion, sinus drainage and cough productive of greenish phlegm. She called her primary care physician who prescribed a Z-Segundo. Her symptoms did not get better and 2 days ago she started to get wheezing and increasing shortness of breath. Her oxygen saturation at home measured below 90 and she says she usually stays in the mid 90s. Today her shortness of breath was even worst and and she was tachycardic and so she went to our emergency room where she was found to have an elevated WBC ( she also has CLL) but chest x-ray showed no acute cardiopulmonary findings . Her BS was 457. She was subsequently admitted under our acute COPD exacerbation protocol likely due to acute bronchitis rule out beginning pneumonia. She was started on IV solumedrol with Humalog and lantus Insulin coverage and breathing treatments. She improved clinically. Will send her home on oral Prednisone and oral antibiotics and will increase her Glipizide ER to 7.5 mg PO Q AM and add metformin 500 mg PO BID. She knows to go up on her glipizide if her BS are still high with the prednisone. Her HbA1c came back to 12.7 ( 327 mean glucose average) and will add tressiba 10 untis at night and if after 2 days her BS are still over 200 she can go up to 15 units. Bring her BS diary with her when she follows up with her PCP. Follow up with her PCP next week. Procedures Performed: none Results and Findings: Lab Pending Results 02/16/18 15:37: WBC 18.3 H, RBC 4.20, Hgb 11.0 L, Hct 37.2, MCV 88.6, MCH 26.2 L, MCHC 29.6 L, RDW 16.3 H, Plt Count 265, MPV 10.3, Neutrophils % (Manual) 68, Lymphocytes % (Manual) 28, Monocytes % (Manual) 3, Eosinophils % (Manual) 1, Neutrophils # (Manual) 12.4 H, Lymphocytes # (Manual) 5.1 H, Monocytes # (Manual ) 0.5, Eosinophils # (Manual) 0.2, Platelet Estimate Normal, RBC Morphology Normal 02/16/18 15:37: Sodium 132, Plasma Sodium 138, Potassium 3.7, Chloride 97, Carbon Dioxide 29.9, Anion Gap 8.8, BUN 16, Creatinine 1.29, Est GFR (Non-Af Amer) 43 L D, BUN/Creatinine Ratio 12.4, Random Glucose 475 H, Calcium 9.1, Calcium Adj for Albumin 9.3, Total Bilirubin 0.2, AST 10, ALT 32, Alkaline Phosphatase 170, Troponin I Less than 0.017, B-Natriuretic Peptide 139, Total Protein 6.7, Albumin 3.4 02/16/18 17:05: pCO2 38.5, pO2 64.3 L, HCO3 24.0, Total CO2 25.1 H, Base Excess -0.5, ABG pH 7.41, ABG O2 Sat (Measured) 92.9 L Discharge Location: Home Disposition: Home self-care Condition: Stable Discharge Activity: Activity as tolerated Discharge Diet: Consistent carbs Referrals: Roma Oshea MD [Primary Care Provider] - Additional Patient Instructions (free text): Follow up with her PCP in 5 days. Prescriptions (Any new or edited meds): Acetaminophen [Tylenol] 1,000 mg PO Q6H PRN #30 tablet PRN Reason: Mild Pain (Pain Scale 1-3) Doxycycline Hyclate [Vibratab] 100 mg PO BID #20 tablet glipiZIDE [Glucotrol Xl] 7.5 mg PO DAILY #30 tab.er.24 Insulin Degludec [Tresiba Flextouch U-200] 10 unit SQ HS #1 insuln.pen predniSONE [Prednisone] 2 tab PO DAILY #14 tab Complete Home Medications List: Complete Home Medication List: Aspirin [Aspirin Enteric Coated] 81 mg PO DAILY 07/23/14 Montelukast Sodium [Singulair] 10 mg PO DAILY #30 tab 03/05/15 Albuterol Sulfate 3 ml IH Q4H PRN 03/28/16 Ropinirole HCl 5 mg PO HS 07/04/16 Loratadine 10 mg PO DAILY 12/03/17 Ranitidine HCl [Zantac] 150 mg PO BID 12/03/17 albuterol sulfate HFA 90 mcg/actuation aerosol inhaler 2 inh IH Q4H PRN 01/21/18 losartan 50 mg tablet 50 mg PO DAILY 01/21/18 potassium 99 mg tablet 99 mg PO DAILY 01/21/18 cholecalciferol (vitamin D3) 5,000 unit capsule 5,000 unit PO DAILY 01/25/18 cyanocobalamin (vit B-12) 1,000 mcg tablet 2,000 mcg PO DAILY tab 01/25/18 fluticasone 110 mcg/actuation HFA aerosol inhaler 2 inh IH BID 01/25/18 oxygen-air delivery systems device See Dose Instructions .ROUTE .MEDSUPPLY #1 01/25/18 Furosemide [Lasix] 20 mg PO DAILY 02/16/18 Acetaminophen [Tylenol] 1,000 mg PO Q6H PRN #30 tablet 02/17/18 Doxycycline Hyclate [Vibratab] 100 mg PO BID #20 tablet 02/17/18 Insulin Degludec [Tresiba Flextouch U-200] 10 unit SQ HS #1 insuln.pen 02/17/18 glipiZIDE [Glucotrol Xl] 7.5 mg PO DAILY #30 tab.er.24 02/17/18 predniSONE [Prednisone] 2 tab PO DAILY #14 tab 02/17/18
[2018-02-17] MEDS ORDERED: MONTELUKAST SODIUM 10 MG TABLET PO SCH ×2 (09:00→21:00)
[2018-02-17] MEDS ORDERED: LOSARTAN POTASSIUM 50 MG TABLET PO SCH (09:00)
[2018-02-17] MEDS ORDERED: FAMOTIDINE 20 MG TABLET PO SCH (09:00)
[2018-02-17] MEDS ORDERED: ASPIRIN 81 MG TABLET.DR PO SCH (09:00)
[2018-02-17] MEDS ORDERED: FUROSEMIDE 20 MG TABLET PO SCH (09:00)
[2018-02-17] MEDS ORDERED: FLUTICASONE PROPIONATE 120 SPRAY INHALER NS SCH (09:00)
[2018-02-17] MEDS ORDERED: CALCIUM CARBONATE/VITAMIN D3 1 TAB TABLET PO SCH (09:00)
[2018-02-17] MEDS ORDERED: LORATADINE 10 MG TABLET PO SCH (09:00)
[2018-02-17] MEDS ORDERED: CHOLECALCIFEROL 5,000 UNIT TABLET PO SCH (09:00)
[2018-02-17] MEDS ORDERED: CYANOCOBALAMIN 1,000 MCG TABLET PO SCH (09:00)
[2018-02-17] MEDS: DOXYCYCLINE HYCLATE 100 MG TABLET PO SCH (09:05)
[2018-02-17 11:56] LABS: Hemoglobin A1C 12.7 % (4.00-6.0)
[2018-02-17 14:54] VITALS: BP 144/70
== END 2018-02-17 15:27 | disposition home or self-care (01) ==
LOC: MS 15:04 → ER 15:04 → MS 17:30
PROVIDERS: ADMIT Internal Medicine; ATTEND Internal Medicine
CPT/HCPCS: 36415; 36600; 71020; 71046; 80053; 82803; 83036; 83519; 83880; 84484; 85025; 93005; 94640; 94664; 94760; 96372; 96374; 96375; 99284; G0378

== ENCOUNTER 2020-06-09 17:19 | Observation (INO) ==
[2020-06-09] MEDS ORDERED: NORMAL SALINE 1,000 ML IV ONE (17:48)
[2020-06-09 18:03] LABS: Hematocrit 35.8 % (37.0-47.0); Hemoglobin 11.1 gm/dL (12.5-16.0); Mean Cell Volume 97.8 fl (78-100); Mean Corpuscular Hemoglobin 30.3 pg (27-31); Mean Platelet Volume 10.2 fl (8-12.5); Neutrophil # 4.6 K/mm3 (1.3-6.0); Neutrophil % 53.3 % (42-75.0); Platelet Count 177 K/mm3 (150-450); Red Blood Count 3.66 M/mm3 (4.2-5.4); Red Cell Distribution Width 13.2 % (11.5-14.0); White Blood Count 8.7 K/mm3 (4.0-10.5)
--- NOTE | 2020-06-09 18:11 | ERNOTE ---
Medical Problem HPI - Narrative Date of Service: 06/09/20 - General Chief Complaint: General Assessment Time Seen by Provider: 06/09/20 17:41 Source: patient, family Exam Limitations: other - Talks slowly. Does not answer all questions. 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 baclofen Adverse Reaction (Mild, Verified 04/20/20 11:09) Altered Mental Status Chicken Feathers Allergy (Intermediate, Uncoded 04/24/18 12:40) SOB Home Medications: HOME MEDICATIONS Aspirin [Aspirin Enteric Coated] 81 mg PO DAILY 07/23/14 [Last Taken 02/15/18 21:00] Albuterol Sulfate 3 ml IH Q4H PRN 08/02/15 [Last Taken 02/16/18 12:00] Loratadine 10 mg PO DAILY 12/03/17 [Last Taken 02/16/18 09:00] albuterol sulfate 90 mcg/actuation aerosol inhaler 2 inh IH Q4H PRN 01/21/18 [Last Taken Unknown] potassium 99 mg tablet 99 mg PO DAILY 01/21/18 [Last Taken 02/15/18 21:00] cyanocobalamin (vitamin B-12) 1,000 mcg tablet 2,000 mcg PO DAILY tab 01/25/18 [Last Taken 02/16/18 12:00] Acetaminophen [Tylenol] 1,000 mg PO Q6H PRN #30 tab 02/17/18 [Last Taken Unknown] cholecalciferol (vitamin D3) 25 mcg (1,000 unit) capsule 3,000 unit PO DAILY cap 04/19/18 [Last Taken Unknown] diclofenac sodium 1 % topical gel 2 g TP QID 06/24/18 [Last Taken Unknown] tramadol 50 mg tablet 50 mg PO Q8H PRN 06/24/18 [Last Taken Unknown] budesonide-formoterol HFA 80 mcg-4.5 mcg/actuation aerosol inhaler 1 inh IH BID g 09/04/18 [Last Taken Unknown] oxygen-air delivery systems See Dose Instructions .ROUTE .MEDSUPPLY #1 11/04/18 [Last Taken Unknown] famotidine 20 mg tablet 20 mg PO BID 05/19/19 [Last Taken Unknown] losartan 100 mg tablet 100 mg PO DAILY #90 tab 05/19/19 [Last Taken Unknown] CBD/THC capsules 1 cap PO DAILY #1 cap 10/22/19 [Last Taken Unknown] pen needle, diabetic 31 gauge x 1/4" See Rx Instructions .ROUTE .COMPLEX #360 ea 10/31/19 [Last Taken Unknown] montelukast 10 mg tablet 10 mg PO DAILY #90 tab 02/09/20 [Last Taken Unknown] glipizide 5 mg tablet, extended release 24 hr 5 mg PO .PM #90 tab 02/16/20 [Last Taken Unknown] ropinirole 5 mg tablet 5 mg PO HS #90 tab 03/05/20 [Last Taken Unknown] glipizide 2.5 mg tablet, extended release 24 hr 2.5 mg PO DAILY #90 tab 03/15/20 [Last Taken Unknown] furosemide 40 mg tablet 40 mg PO DAILY #90 tab 03/29/20 [Last Taken Unknown] insulin aspart U-100 100 unit/mL (3 mL) subcutaneous pen 10 unit SUBCUT AC #1 ml 04/20/20 [Last Taken Unknown] insulin detemir U-100 100 unit/mL (3 mL) subcutaneous pen 30 unit SUBCUT DAILY #1 ml 04/20/20 [Last Taken Unknown] blood sugar diagnostic See Rx Instructions .ROUTE .MEDSUPPLY #100 ea 04/21/20 [Last Taken Unknown] lancets See Rx Instructions .ROUTE .MEDSUPPLY #100 ea 04/21/20 [Last Taken Unknown] metformin 500 mg tablet,extended release 24hr 1,500 mg PO DAILY #270 tab 05/17/20 [Last Taken Unknown] - History of Present History Narrative: This patient is a 79-year-old female who was brought here by his . He says she is weak and has not been eating. It sounds like she has had a cough, vomiting, and diarrhea for about a week. She said that she has felt feverish and chilling off and on. Her highest temperature was 99.3. She reportedly had a fall today. No injury. She does is not able to tell me what happened. She has a history of diabetes. She says that she has been taking her medication. Her blood sugar here was 185. Review of Systems - Review of Systems Constitutional: Present: fever - Off and on, max 99.3., chills EYE: Absent: vision changes ENT: Present: nose congestion, nasal drainage. Absent: ear pain, sore throat Respiratory: Present: cough, other - She is on oxygen at home. Cardiology: Absent: chest pain, palpitations Gastrointestinal/Abdominal: Present: nausea, vomiting, diarrhea, abdominal pain - Sometimes, eating less, drinking less, other - No blood in the vomit or diarrhea. Genitourinary: Absent: frequency, pain, dysuria, hematuria Musculoskeletal: Present: back pain - Chronic Skin: Absent: rash Neurological: Present: headache Endocrine: Present: other - She is diabetic Hematologic/Lymphatic: Present: other - No active bleeding Psych: Present: no symptoms reported Medical History (Last Reviewed 06/09/20 @ 18:03 by Tyler Medina MD) Chronic leukemia (Resolved) Onset Date: ~07/02/13 Lymphoid leukemia, chronic, in remission Recurrent pneumonia (Chronic) Diabetes (Chronic) COPD (chronic obstructive pulmonary disease) (Chronic) COPD exacerbation (Acute) Vertigo (Resolved) RLS (restless legs syndrome) (Resolved) Osteopenia (Chronic) QUINN (obstructive sleep apnea) (Chronic) Onychomycosis (Chronic) Moderate left ventricular hypertrophy (Acute) Onset Date: ~06/07/15 Diastolic dysfunction, mild AR, Echo [facility], 06/07/15 Lichen sclerosus (Acute) Insomnia (Chronic) Hypertension (Chronic) Degeneration of lumbar intervertebral disc (Chronic) Onset Date: ~02/14/12 Bulging disc (Chronic) Onset Date: ~02/14/12 Asthma (Chronic) Chronic use of steroids (Chronic) CLL (chronic lymphocytic leukemia) (Chronic) Hypoxemia (Acute) Active asthma (Acute) Pneumonia (Acute) Diabetes (Chronic) Failure of outpatient treatment (Acute) Hypoglycemia (Acute) Elevated BP (Acute) Bronchitis (Acute) Surgical History: Surgical History (Last Reviewed 06/09/20 @ 18:03 by Tyler Medina MD) History of hysterectomy (Resolved) Hx of cholecystectomy (Resolved) History of appendectomy (Resolved) History of cholecystectomy (Resolved) History of lumpectomy of left breast (Resolved) History of tonsillectomy (Resolved) Colonoscopy refused (Acute) Family History: Family History (Last Reviewed 06/09/20 @ 18:03 by Tyler Medina MD) Mother , age 77 CVA (cerebral vascular accident) Chronic leukemia Father , age 62 Multiple myeloma grade 5 Social History: (Last Reviewed 06/09/20 @ 18:03 by Tyler Medina MD) Social History: long-term: No Marital status: household members: spouse current occupational status: retired Highest level of school completed/degree received: GED or equivalent Service: No Tobacco: Smoking Status: Former smoker second hand exposure: No Alcohol: alcohol intake: current Substance Use: substance use type: does not use Dietary Habits: caffeine: Yes Exercise: Physical activity functional status: other Physical Exam - Physical Exam General Appearance: Present: no apparent distress, lethargic, obese Head Exam: Present: normal inspection, no evidence of injury Eye Exam: Normal inspection: bilateral Ears, Nose, Throat: Present: normal ENT inspection Neck: Present: normal inspection, supple Respiratory: Present: no respiratory distress, no accessory muscle use, crackles - At the bases. Cardiovascular/Chest: Present: regular rate, rhythm, no murmur Gastrointestinal/Abdominal: Present: normal bowel sounds, nondistended, soft, no organomegaly, tenderness - Right abdomen Back Exam: Present: normal inspection Extremity Exam: Present: normal inspection, pedal edema Neurological Exam: Present: oriented, normal mood/affect, no motor/sensory deficits - No gross lateralizing neurologic deficit. Absent: alert - drowsy Skin Exam: Present: normal color, warm/dry Progress - Date and Time Seen: Date and Time: 06/09/20 19:58 Dr. Ovalles agrees to keep her for observation. - Results and Orders Patient's Lab Results:: I have reviewed the patient's lab results. Results and Orders: Laboratory Tests 06/09/20 06/09/20 06/09/20 17:41 17:58 17:58 WBC 8.7 RBC 3.66 L Hgb 11.1 L Hct 35.8 L MCV 97.8 MCH 30.3 MCHC 31.0 L RDW 13.2 Plt Count 177 MPV 10.2 Immature Gran % (Auto) 0.30 Immature Gran # (Auto) 0.03 Neutrophils % 53.3 Lymphocytes % 40.5 Monocytes % 5.6 Eosinophils % 0.2 Basophils % 0.1 Nucleated RBC % 0.0 Neutrophils # 4.6 Lymphocytes # 3.52 H Monocytes # 0.5 Eosinophils # 0.0 Absolute Basophils 0.0 Sodium 141 Plasma Sodium 142 Potassium 3.9 Chloride 104 Carbon Dioxide 29.4 Anion Gap 11.5 BUN 26 H D Creatinine 1.62 H D Est GFR (Non-Af Amer) 33 L D BUN/Creatinine Ratio 16.0 Random Glucose 167 H Lactic Acid, Venous Calcium 8.8 Calcium Adj for Albumin 9.4 Total Bilirubin 0.3 AST 52 H ALT 57 Alkaline Phosphatase 90 Total Protein 6.8 Albumin 2.9 L Lipase 189 Urine Color Yellow Urine Appearance Clear Urine pH 6.0 Ur Specific [place] 1.025 Urine Protein 30 H Urine Glucose (UA) Negative Urine Ketones Negative Urine Blood 250 H Urine Nitrate Negative Urine Bilirubin Negative Urine Urobilinogen Normal Ur Leukocyte Esterase Negative Urine RBC >50 H Urine WBC 0-5 Ur Epithelial Cells Trace Amorphous Sediment Few - 1+ Urine Bacteria 1+ H Urine Culture Comments Culture to follow SARS-CoV-2 (PCR) 06/09/20 06/09/20 17:58 18:13 WBC RBC Hgb Hct MCV MCH MCHC RDW Plt Count MPV Immature Gran % (Auto) Immature Gran # (Auto) Neutrophils % Lymphocytes % Monocytes % Eosinophils % Basophils % Nucleated RBC % Neutrophils # Lymphocytes # Monocytes # Eosinophils # Absolute Basophils Sodium Plasma Sodium Potassium Chloride Carbon Dioxide Anion Gap BUN Creatinine Est GFR (Non-Af Amer) BUN/Creatinine Ratio Random Glucose Lactic Acid, Venous 0.9 Calcium Calcium Adj for Albumin Total Bilirubin AST ALT Alkaline Phosphatase Total Protein Albumin Lipase Urine Color Urine Appearance Urine pH Ur Specific [place] Urine Protein Urine Glucose (UA) Urine Ketones Urine Blood Urine Nitrate Urine Bilirubin Urine Urobilinogen Ur Leukocyte Esterase Urine RBC Urine WBC Ur Epithelial Cells Amorphous Sediment Urine Bacteria Urine Culture Comments SARS-CoV-2 (PCR) Detected H - Vital Signs Patient's Vital Signs:: I have reviewed the patient's vital signs. Vital Signs: Vital Signs 06/09/20 17:29 Temperature 36.7 C Pulse Rate 91 Respiratory Rate 16 Blood Pressure 148/66 O2 Sat by Pulse Oximetry 97 - EKG EKG #1 EKG read: Interp. by me EKG Comments: Normal sinus rhythm Rate 89 Normal axis Normal appearing ST and T waves Compared to an EKG dated 02/16/2018, the rate was faster. - X-Ray X-Ray #1 X-Ray: chest Interpretation: Reviewed by me X-ray Comments: Chest Single View *~ Exam Date: 06/09/2020 18:26 Ordering Physician: Tyler Medina MD Chest Single View * INDICATION: cough, fever. COMPARISON STUDY: Chest radiograph dated 02/16/2018. TECHNIQUE: Single PA view of the chest was obtained. FINDINGS: Stable lung volumes. No consolidation. Stable cardiomegaly and tortuous, atherosclerotic thoracic aorta. No pleural effusion or pneumothorax. Calcified granuloma at the right base. No acute osseous abnormality. IMPRESSION: No acute cardiopulmonary process. Electronically signed by Karen Nation D.O.. Karen Nation DO - CT/Ultrasound CT/Ultrasound Narrative: CT Head W/O *~ Exam Date: 06/09/2020 18:30 Ordering Physician: Tyler Medina MD CT Head W/O * Date: 06/09/2020 6:30 PM Clinical Indication: Confusion. Comparison: None. Technique: 5 mm axial tomographic images were obtained of the head without contrast. These were viewed on brain and bone windows. Individualized dose optimization technique was used for the performed procedure including automated exposure control, adjustment of the mA and/or kV according to patient size and/or the iterative reconstruction technique. Findings: Mild generalized cerebral and cerebellar volume loss. Mild nonspecific periventricular hypoattenuation, most commonly seen with chronic small vessel ischemic disease. Calcified atherosclerosis of the bilateral cavernous and paraclinoid internal carotid arteries and intracranial vertebral arteries. No intra- or extra-axial mass or fluid collection. No acute hemorrhage. The ventricles are normal in size, shape, and morphology. The russo-white matter junction is normal. The basilar cisterns are patent. The visualized paranasal sinuses are normal. The visualized portions of the orbits and globes are normal. The mastoid air cells are clear. No aggressive osseous lesion or fracture. Impression: No acute intracranial process. Mild cerebral volume loss. Mild chronic small vessel ischemic disease. Electronically signed by Karen Nation D.O.. CT Abdomen/Pelvis W/O~ Exam Date: 06/09/2020 18:51 Ordering Physician: Tyler Medina MD CT Abdomen/Pelvis W/O INDICATION: abdominal pain, right side EXAM: Noncontrast CT of the abdomen and pelvis. Coronal reformatted images were performed. Individualized dose optimization technique was used for the performed procedure including automated exposure control, adjustment of the mA and/or kV according to patient size and/or the iterative reconstruction technique. COMPARISON: CT abdomen and pelvis dated 01/25/2009. FINDINGS: No free air, free fluid, or fluid collection. Lower chest: The visualized lower lungs demonstrate bibasilar linear heterogeneous opacities, possibly subsegmental atelectasis. Superimposed infection not excluded. Scattered calcified granulomas. Cardiomegaly. Normal pericardium. Coronary artery calcifications. ABDOMEN: Liver: Hepatomegaly measures 20 cm craniocaudal. Diffuse hepatic steatosis. Gallbladder and biliary: Cholecystectomy. Normal caliber bile ducts. Spleen: Normal spleen. Pancreas: The noncontrast pancreas is homogeneous in attenuation without peripancreatic inflammatory changes. Adrenal glands: Normal adrenal glands. Kidneys and ureters: There is mild right-sided hydroureteronephrosis with periureteral inflammatory changes. There is a calcified stone within the dependent aspect of the urinary bladder measuring up to 4 mm. This may represent a recently passed stone. There is no obstructing stone at the right ureter at this time. There is a cystic lesion at the inferior pole of the right kidney which is incompletely evaluated unenhanced exam. There are small nonobstructing stone at the left kidney which are difficult to evaluate given motion. There is no hydronephrosis on the left. GI tract: The stomach is decompressed and poorly evaluated. Normal caliber small bowel and colon. Nonvisualization of the appendix. Vascular structures: Tortuous and ectatic abdominal aorta with diffuse calcific atherosclerosis. Lymph nodes: No lymphadenopathy in the abdomen or pelvis. PELVIS: Genitourinary system: Urinary bladder is underdistended and poorly evaluated. There is a 4 mm calcified stone at the dependent aspect of the urinary bladder. SKELETAL STRUCTURES AND SOFT TISSUES: Small fat-containing umbilical hernia. No fracture or destructive lesion in the visualized skeleton. IMPRESSION: 1. Mild right-sided hydroureteronephrosis with adjacent periureteral inflammatory changes. There is a 4 mm calcified stone at the dependent aspect of the urinary bladder. These findings could relate to a recently passed stone. There is no calcified obstructing stones at the right ureter. Other differential considerations would include underlying stricture or neoplasm which are not well evaluated on this unenhanced exam. 2. Multiple small nonobstructive stones at the left kidney. 3. Hepatomegaly. 4. Cystic lesion at the inferior pole of the right kidney which is incompletely evaluated on this unenhanced exam. 5. Nonvisualization of the appendix. Recommend clinical correlation for prior appendectomy. 6. Bibasilar heterogeneous opacities, possibly subsegmental atelectasis. Underlying infection not excluded. Electronically signed by Karen Nation D.O.. - Progress/Reassessment Chief Complaint: General Assessment Departure Clinical Impression: Dehydration, ANNA (acute kidney injury), COVID-19, Hydronephrosis, Generalized weakness - Departure Disposition: Still a patient Condition: Stable Referrals: Radha Johnson MD [Primary Care Provider] -
[2020-06-09 18:12] LABS: Urine Bilirubin Negative (NEGATIVE); Urine Blood 250 /ul (NEGATIVE); Urine Ketone Negative (NEGATIVE); Urine Nitrite Negative (NEGATIVE); Urine Protein 30 mg/dL (NEGATIVE); Urine Specific Gravity 1.025 SP.GR. (1.005-1.010); Urine Urobilinogen Normal (NORMAL)
[2020-06-09 18:18] LABS: Albumin * 2.9 gm/dl (3.4-5.0); Anion Gap 11.5 mmol/L (6.8-13.8); Bilirubin, Total 0.3 mg/dL (0.0-1.1); Ca. Corrected For Albumin 9.4 mg/dL (8.4-10.2); Calcium * 8.8 mg/dL (7.9-10.9); Carbon Dioxide 29.4 mmol/L (24-32.6); Potassium 3.9 mmol/L (3.4-4.6); Total Protein 6.8 gm/dL (6.2-8.2)
[2020-06-09 18:29] LABS: Urine Appearance Clear (CLEAR); Urine Bacteria 1+; Urine Color Yellow; Urine RBC >50 /hpf (0-5); Urine WBC 0-5 /hpf (0-5)
[2020-06-09 18:30] LABS: Urine Amorphous Sediment Few - 1+ (NONE-FEW)
[2020-06-10] MEDS: NORMAL SALINE 1,000 ML IV PRN ×2 (01:01→11:05)
[2020-06-10] MEDS ORDERED: ACETAMINOPHEN 325 MG TABLET PO PRN (08:07)
--- NOTE | 2020-06-10 09:23 | HP ---
Chief Complaint - Chief Complaint Date of Service: 06/10/20 Time of Service: 08:20 Chief Complaint: Weakness and not eating History of Present Illness: Jody is a 79 yo female with COVID19 who has not been eating or drinking as well the last few days. She has also had diarrhea and fever with sweats. She reports having normal taste and smell but her appetite is decreased. She presented to the [facility] ER with her due to weakness, slight confusion, and decreased oral intake. In the ER her Creatinine was 1.6 with no significant electrolyte imbalance. Her vitals were stable. She uses oxygen at home at 2lpm and she has not had any respiratory change. Medical History (Last Reviewed 06/09/20 @ 18:06 by Rhonda Kim RN) Chronic leukemia (Resolved) Onset Date: ~07/02/13 Lymphoid leukemia, chronic, in remission Recurrent pneumonia (Chronic) Diabetes (Chronic) COPD (chronic obstructive pulmonary disease) (Chronic) COPD exacerbation (Acute) Vertigo (Resolved) RLS (restless legs syndrome) (Resolved) Osteopenia (Chronic) QUINN (obstructive sleep apnea) (Chronic) Onychomycosis (Chronic) Moderate left ventricular hypertrophy (Acute) Onset Date: ~06/07/15 Diastolic dysfunction, mild AR, Echo [facility], 06/07/15 Lichen sclerosus (Acute) Insomnia (Chronic) Hypertension (Chronic) Degeneration of lumbar intervertebral disc (Chronic) Onset Date: ~02/14/12 Bulging disc (Chronic) Onset Date: ~02/14/12 Asthma (Chronic) Chronic use of steroids (Chronic) CLL (chronic lymphocytic leukemia) (Chronic) Hypoxemia (Acute) Active asthma (Acute) Pneumonia (Acute) Diabetes (Chronic) Failure of outpatient treatment (Acute) Hypoglycemia (Acute) Elevated BP (Acute) Bronchitis (Acute) Surgical History: Surgical History (Last Reviewed 06/09/20 @ 18:06 by Rhonda Kim RN) History of hysterectomy (Resolved) Hx of cholecystectomy (Resolved) History of appendectomy (Resolved) History of cholecystectomy (Resolved) History of lumpectomy of left breast (Resolved) History of tonsillectomy (Resolved) Colonoscopy refused (Acute) Family History: Family History (Last Reviewed 06/09/20 @ 18:06 by Rhonda Kim RN) Mother , age 77 Chronic leukemia CVA (cerebral vascular accident) Father , age 62 Multiple myeloma grade 5 Social History: (Last Reviewed 06/09/20 @ 18:06 by Rhonda Kim RN) Social History: half-way: No Marital status: household members: spouse current occupational status: retired Highest level of school completed/degree received: GED or equivalent Service: No Tobacco: Smoking Status: Former smoker second hand exposure: No Alcohol: alcohol intake: current Substance Use: substance use type: does not use Dietary Habits: caffeine: Yes Exercise: Physical activity functional status: other Review Of Systems (GEN) - Review of Systems Generalized/Overall Review: Present: Weakness, Chills, Fever, Diaphoresis, Fatigue EENTM: Present: No Symptoms Reported Respiratory: Absent: Cough, Shortness of Breath Cardiac: Absent: Chest Pain, Edema, Palpitations, Syncope Abdominal: Present: Diarrhea. Absent: Nausea, Vomiting, Hematemesis, Abdominal Pain Genitourinary: Absent: Burning, Frequency Musculoskeletal: Present: No Symptoms Reported Neurological: Present: No Symptoms Reported Skin: Present: No Symptoms Reported Immunizations: IMMUNIZATION HX Immunizations Up to Date Yes History of Influenza Vaccine Yes Hx Pneumococcal Vaccination Yes Allergies/Adverse Reactions: Allergies Allergy/AdvReac Type Severity Reaction Status Date / Time Penicillins Allergy Severe HIVES, Verified 04/20/20 11:09 TONGUE AND LIP SWELLING tizanidine HCl AdvReac Intermediate [employer] side Verified 04/20/20 11:09 [From Zanaflex] effects baclofen AdvReac Mild Altered Verified 04/20/20 11:09 Mental Status Chicken Feathers Allergy Intermediate SOB Uncoded 04/24/18 12:40 Home Medications: HOME MEDICATIONS Aspirin [Aspirin Enteric Coated] 81 mg PO DAILY 07/23/14 [Last Taken 02/15/18 21:00] Albuterol Sulfate 3 ml IH Q4H PRN 08/02/15 [Last Taken 02/16/18 12:00] Loratadine 10 mg PO DAILY 12/03/17 [Last Taken 02/16/18 09:00] albuterol sulfate 90 mcg/actuation aerosol inhaler 2 inh IH Q4H PRN 01/21/18 [Last Taken Unknown] potassium 99 mg tablet 99 mg PO DAILY 01/21/18 [Last Taken 02/15/18 21:00] cyanocobalamin (vitamin B-12) 1,000 mcg tablet 2,000 mcg PO DAILY tab 01/25/18 [Last Taken 02/16/18 12:00] Acetaminophen [Tylenol] 1,000 mg PO Q6H PRN #30 tab 02/17/18 [Last Taken Unknown] cholecalciferol (vitamin D3) 25 mcg (1,000 unit) capsule 3,000 unit PO DAILY cap 04/19/18 [Last Taken Unknown] diclofenac sodium 1 % topical gel 2 g TP QID 06/24/18 [Last Taken Unknown] tramadol 50 mg tablet 50 mg PO Q8H PRN 06/24/18 [Last Taken Unknown] budesonide-formoterol HFA 80 mcg-4.5 mcg/actuation aerosol inhaler 1 inh IH BID g 09/04/18 [Last Taken Unknown] oxygen-air delivery systems See Dose Instructions .ROUTE .MEDSUPPLY #1 11/04/18 [Last Taken Unknown] famotidine 20 mg tablet 20 mg PO BID 05/19/19 [Last Taken Unknown] losartan 100 mg tablet 100 mg PO DAILY #90 tab 05/19/19 [Last Taken Unknown] CBD/THC capsules 1 cap PO DAILY #1 cap 10/22/19 [Last Taken Unknown] pen needle, diabetic 31 gauge x 1/4" See Rx Instructions .ROUTE .COMPLEX #360 ea 10/31/19 [Last Taken Unknown] montelukast 10 mg tablet 10 mg PO DAILY #90 tab 02/09/20 [Last Taken Unknown] glipizide 5 mg tablet, extended release 24 hr 5 mg PO .PM #90 tab 02/16/20 [Last Taken Unknown] ropinirole 5 mg tablet 5 mg PO HS #90 tab 03/05/20 [Last Taken Unknown] glipizide 2.5 mg tablet, extended release 24 hr 2.5 mg PO DAILY #90 tab 03/15/20 [Last Taken Unknown] furosemide 40 mg tablet 40 mg PO DAILY #90 tab 03/29/20 [Last Taken Unknown] insulin aspart U-100 100 unit/mL (3 mL) subcutaneous pen 10 unit SUBCUT AC #1 ml 04/20/20 [Last Taken Unknown] insulin detemir U-100 100 unit/mL (3 mL) subcutaneous pen 30 unit SUBCUT DAILY #1 ml 04/20/20 [Last Taken Unknown] blood sugar diagnostic See Rx Instructions .ROUTE .MEDSUPPLY #100 ea 12/16/20 [Last Taken Unknown] lancets See Rx Instructions .ROUTE .MEDSUPPLY #100 ea 04/21/20 [Last Taken Unknown] metformin 500 mg tablet,extended release 24hr 1,500 mg PO DAILY #270 tab 05/17/20 [Last Taken Unknown] Exam - Exam Vital Signs: Vital Signs - Last Taken Temp 37.4 C 06/10/20 03:00 Pulse 90 06/10/20 03:00 Resp 16 06/10/20 03:00 BP 143/77 06/10/20 03:00 Pulse Ox 99 06/10/20 03:00 Constitutional: Present: Alert, Oriented x3, Cooperative, No distress ENT Exam: Present: hearing grossly normal Eye Exam: bilateral eye: normal inspection Respiratory: Present: lungs clear, normal breath sounds Cardiovascular/Chest: Present: regular rate, rhythm, no murmur Peripheral Pulses: radial (R): 2+, radial (L): 2+ Abdomen: Present: Normal bowel sounds, soft, nontender, nondistended Skin Exam: Present: normal color, warm/dry, no cyanosis Appearance: Present: appropriate appearance, appropriate insight Eye contact: Present: cooperative, good eye contact, normal speech Thoughts: Present: normal thought pattern, no apparent hallucination Diagnostic Studies: Abnormal Lab Results 06/09/20 06/09/20 06/09/20 Range/Units 17:41 17:58 17:58 RBC 3.66 L (4.2-5.4) M/mm3 Hgb 11.1 L (12.5-16.0) gm/dL Hct 35.8 L (37.0-47.0) % MCHC 31.0 L (32-36) g/dl Lymphocytes # 3.52 H (1.5-3.5) k/mm3 BUN 26 H D (3-23) mg/dL Creatinine 1.62 H D (0.4-1.4) mg/dL Est GFR (Non-Af Amer) 33 L D (60-130) mL/min Random Glucose 167 H (70-110) mg/dL AST 52 H (0-48) U/L Albumin 2.9 L (3.4-5.0) gm/dl Urine Protein 30 H (NEGATIVE) mg/dL Urine Blood 250 H (NEGATIVE) /ul Urine RBC >50 H (0-5) /hpf Urine Bacteria 1+ H (NONE) SARS-CoV-2 (PCR) (NotDetected) 06/09/20 Range/Units 18:13 RBC (4.2-5.4) M/mm3 Hgb (12.5-16.0) gm/dL Hct (37.0-47.0) % MCHC (32-36) g/dl Lymphocytes # (1.5-3.5) k/mm3 BUN (3-23) mg/dL Creatinine (0.4-1.4) mg/dL Est GFR (Non-Af Amer) (60-130) mL/min Random Glucose (70-110) mg/dL AST (0-48) U/L Albumin (3.4-5.0) gm/dl Urine Protein (NEGATIVE) mg/dL Urine Blood (NEGATIVE) /ul Urine RBC (0-5) /hpf Urine Bacteria (NONE) SARS-CoV-2 (PCR) Detected H (NotDetected) Microbiology 06/09/20 17:41 Urine Culture - Preliminary Urine,Catheterized No Growth Laboratory Results WBC 8.7 K/mm3 (4.0-10.5) 06/09/20 17:58 RBC 3.66 M/mm3 (4.2-5.4) L 06/09/20 17:58 Hgb 11.1 gm/dL (12.5-16.0) L 06/09/20 17:58 Hct 35.8 % (37.0-47.0) L 06/09/20 17:58 MCV 97.8 fl (78-100) 06/09/20 17:58 MCH 30.3 pg (27-31) 06/09/20 17:58 MCHC 31.0 g/dl (32-36) L 06/09/20 17:58 RDW 13.2 % (11.5-14.0) 06/09/20 17:58 Plt Count 177 K/mm3 (150-450) 06/09/20 17:58 MPV 10.2 fl (8-12.5) 06/09/20 17:58 Immature Gran % (Auto) 0.30 % (0.001-0.429) 06/09/20 17:58 Immature Gran # (Auto) 0.03 K/mm3 (0.000-0.0310) 06/09/20 17:58 Neutrophils % 53.3 % (42-75.0) 06/09/20 17:58 Lymphocytes % 40.5 % (20-51) 06/09/20 17:58 Monocytes % 5.6 % (0.0-9) 06/09/20 17:58 Eosinophils % 0.2 % (0.0-3.0) 06/09/20 17:58 Basophils % 0.1 % (0.0-1.0) 06/09/20 17:58 Nucleated RBC % 0.0 k/mm3 (0-1) 06/09/20 17:58 Neutrophils # 4.6 K/mm3 (1.3-6.0) 06/09/20 17:58 Lymphocytes # 3.52 k/mm3 (1.5-3.5) H 06/09/20 17:58 Monocytes # 0.5 k/mm3 (0.0-1.0) 06/09/20 17:58 Eosinophils # 0.0 k/mm3 (0.0-0.7) 06/09/20 17:58 Absolute Basophils 0.0 k/mm3 (0.0-0.1) 06/09/20 17:58 Sodium 141 mmol/L (132-142) 06/09/20 17:58 Plasma Sodium 142 mmol/L (130-142) 06/09/20 17:58 Potassium 3.9 mmol/L (3.4-4.6) 06/09/20 17:58 Chloride 104 mmol/L (97-106) 06/09/20 17:58 Carbon Dioxide 29.4 mmol/L (24-32.6) 06/09/20 17:58 Anion Gap 11.5 mmol/L (6.8-13.8) 06/09/20 17:58 BUN 26 mg/dL (3-23) H D 06/09/20 17:58 Creatinine 1.62 mg/dL (0.4-1.4) H D 06/09/20 17:58 Est GFR (Non-Af Amer) 33 mL/min (60-130) L D 06/09/20 17:58 BUN/Creatinine Ratio 16.0 (9.0-21.6) 06/09/20 17:58 Random Glucose 167 mg/dL (70-110) H 06/09/20 17:58 Lactic Acid, Venous 0.9 mmol/L (0.4-2.0) 06/09/20 17:58 Calcium 8.8 mg/dL (7.9-10.9) 06/09/20 17:58 Calcium Adj for Albumin 9.4 mg/dL (8.4-10.2) 06/09/20 17:58 Total Bilirubin 0.3 mg/dL (0.0-1.1) 06/09/20 17:58 AST 52 U/L (0-48) H 06/09/20 17:58 ALT 57 U/L (19-67) 06/09/20 17:58 Alkaline Phosphatase 90 U/L (50-170) 06/09/20 17:58 Total Protein 6.8 gm/dL (6.2-8.2) 06/09/20 17:58 Albumin 2.9 gm/dl (3.4-5.0) L 06/09/20 17:58 Lipase 189 U/L (73-393) 06/09/20 17:58 Urine Color Yellow 06/09/20 17:41 Urine Appearance Clear (CLEAR) 06/09/20 17:41 Urine pH 6.0 pH (5.0-7.0) 06/09/20 17:41 Ur Specific [place] 1.025 SP.GR. (1.005-1.010) 06/09/20 17:41 Urine Protein 30 mg/dL (NEGATIVE) H 06/09/20 17:41 Urine Glucose (UA) Negative mg/dL (NEGATIVE) 06/09/20 17:41 Urine Ketones Negative mg/dL (NEGATIVE) 06/09/20 17:41 Urine Blood 250 /ul (NEGATIVE) H 06/09/20 17:41 Urine Nitrate Negative (NEGATIVE) 06/09/20 17:41 Urine Bilirubin Negative mg/dl (NEGATIVE) 06/09/20 17:41 Urine Urobilinogen Normal EU/dl (NORMAL) 06/09/20 17:41 Ur Leukocyte Esterase Negative /ul (NEGATIVE) 06/09/20 17:41 Urine RBC >50 /hpf (0-5) H 06/09/20 17:41 Urine WBC 0-5 /hpf (0-5) 06/09/20 17:41 Ur Epithelial Cells Trace /hpf (0-5) 06/09/20 17:41 Amorphous Sediment Few - 1+ (NONE-FEW) 06/09/20 17:41 Urine Bacteria 1+ (NONE) H 06/09/20 17:41 Urine Culture Comments Culture to follow 06/09/20 17:41 SARS-CoV-2 (PCR) Detected (NotDetected) H 06/09/20 18:13 Assessment/Plan - Narrative Narrative: Jody has acute kidney injury secondary to moderate dehydration due to COVID- 19 induced diarrhea, fever with sweats, and decreased oral intake. She will be admitted to observation, given IV fluids, and renal function will be monitored. If renal function improves and she is feeling better this afternoon she may be able to discharge to home. There is no respiratory concern from COVID19 she is at her baseline. - Assessment/Plan (1) Moderate dehydration Problem: Acute (2) ANNA (acute kidney injury) Problem: Acute (3) COVID-19 Problem: Acute (4) Chronic respiratory failure Problem: Chronic (5) COPD (chronic obstructive pulmonary disease) Problem: Chronic Qualifiers: COPD type: unspecified COPD Qualified Code(s): J44.9 - Chronic obstructive pulmonary disease, unspecified
[2020-06-10 09:57] LABS: Albumin * 2.7 gm/dl (3.4-5.0); BUN/Creatinine Ratio 18.3 (9.0-21.6); Bilirubin, Total 0.4 mg/dL (0.0-1.1); Calcium * 8.3 mg/dL (7.9-10.9); Carbon Dioxide 24.7 mmol/L (24-32.6); Potassium 3.7 mmol/L (3.4-4.6); Total Protein 6.3 gm/dL (6.2-8.2)
--- NOTE | 2020-06-10 13:56 | DS ---
(1) Moderate dehydration Problem: Resolved (2) ANNA (acute kidney injury) Problem: Resolved (3) COVID-19 Problem: Chronic (4) Chronic respiratory failure Problem: Chronic Qualifiers: Respiratory failure complication: hypoxia Qualified Code(s): J96.11 - Chronic respiratory failure with hypoxia (5) COPD (chronic obstructive pulmonary disease) Problem: Chronic Qualifiers: COPD type: unspecified COPD Qualified Code(s): J44.9 - Chronic obstructive pulmonary disease, unspecified Date of Discharge:: 06/10/20 Hospital Course: Jody was admitted for acute kidney injury from moderate dehydration secondary to diarrhea, decreased oral intake, and fever with sweats that she has had from COVID19. She was admitted to observation and treated with IV fluids. Her renal function is back to normal and she is feeling better and feels ready for discharge to home. She has chronic respiratory failure secondary to COPD, but this appears to be at her baseline of 2lpm of oxygen via [place] and has not been worsened from COVID19. She will be discharged to home this afternoon with no changes to medication. She will work to stay hydrated. Procedures Performed: none Results and Findings: Pending Mircobiology Results 06/09/20 17:41 Urine,Catheterized Urine Culture - Preliminary No Growth Lab Pending Results 06/09/20 17:41: Urine Color Yellow, Urine Appearance Clear, Urine pH 6.0, Ur Specific [place] 1.025, Urine Protein 30 H, Urine Glucose (UA) Negative, Urine Ketones Negative, Urine Blood 250 H, Urine Nitrate Negative, Urine Bilirubin Negative, Urine Urobilinogen Normal, Ur Leukocyte Esterase Negative, Urine RBC >50 H, Urine WBC 0-5, Ur Epithelial Cells Trace, Amorphous Sediment Few - 1+, Urine Bacteria 1+ H, Urine Culture Comments Culture to follow 06/09/20 17:58: WBC 8.7, RBC 3.66 L, Hgb 11.1 L, Hct 35.8 L, MCV 97.8, MCH 30.3, MCHC 31.0 L, RDW 13.2, Plt Count 177, MPV 10.2, Immature Gran % (Auto) 0.30, Immature Gran # (Auto) 0.03, Neutrophils % 53.3, Lymphocytes % 40.5, Monocytes % 5.6, Eosinophils % 0.2, Basophils % 0.1, Nucleated RBC % 0.0, Neutrophils # 4.6, Lymphocytes # 3.52 H, Monocytes # 0.5, Eosinophils # 0.0, Absolute Basophils 0.0 06/09/20 17:58: Sodium 141, Plasma Sodium 142, Potassium 3.9, Chloride 104, Carbon Dioxide 29.4, Anion Gap 11.5, BUN 26 H D, Creatinine 1.62 H D, Est GFR (Non-Af Amer) 33 L D, BUN/Creatinine Ratio 16.0, Random Glucose 167 H, Calcium 8.8, Calcium Adj for Albumin 9.4, Total Bilirubin 0.3, AST 52 H, ALT 57, Alkaline Phosphatase 90, Total Protein 6.8, Albumin 2.9 L, Lipase 189 06/09/20 17:58: Lactic Acid, Venous 0.9 06/09/20 18:13: SARS-CoV-2 (PCR) Detected H 06/10/20 09:12: Sodium 138, Plasma Sodium 141, Potassium 3.7, Chloride 105, Carbon Dioxide 24.7, Anion Gap 12.0, BUN 21, Creatinine 1.15, Est GFR (Non-Af Amer) 48 L D, BUN/Creatinine Ratio 18.3, Random Glucose 263 H D, Calcium 8.3, Calcium Adj for Albumin 9.0, Total Bilirubin 0.4, AST 43, ALT 52, Alkaline Phosphatase 83, Total Protein 6.3, Albumin 2.7 L Discharge Location: Home Disposition: Home self-care Condition: Stable Discharge Activity: Activity as tolerated Discharge Diet: General/regular food Referrals: Radha Johnson MD [Primary Care Provider] - One Week Problem Oriented Discharge Instructions to Patient/Family: Acute Kidney Injury, Adult Complete Home Medications List: Complete Home Medication List: Aspirin [Aspirin Enteric Coated] 81 mg PO DAILY 07/23/14 Albuterol Sulfate 3 ml IH Q4H PRN 08/02/15 Loratadine 10 mg PO DAILY 12/03/17 albuterol sulfate 90 mcg/actuation aerosol inhaler 2 inh IH Q4H PRN 01/21/18 potassium 99 mg tablet 99 mg PO DAILY 01/21/18 cyanocobalamin (vitamin B-12) 1,000 mcg tablet 2,000 mcg PO DAILY tab 01/25/18 Acetaminophen [Tylenol] 1,000 mg PO Q6H PRN #30 tab 02/17/18 cholecalciferol (vitamin D3) 25 mcg (1,000 unit) capsule 3,000 unit PO DAILY cap 04/19/18 diclofenac sodium 1 % topical gel 2 g TP QID 06/24/18 tramadol 50 mg tablet 50 mg PO Q8H PRN 06/24/18 budesonide-formoterol HFA 80 mcg-4.5 mcg/actuation aerosol inhaler 1 inh IH BID g 09/04/18 oxygen-air delivery systems See Dose Instructions .ROUTE .MEDSUPPLY #1 11/04/18 famotidine 20 mg tablet 20 mg PO BID 05/19/19 losartan 100 mg tablet 100 mg PO DAILY #90 tab 05/19/19 CBD/THC capsules 1 cap PO DAILY #1 cap 10/22/19 pen needle, diabetic 31 gauge x 1/4" See Rx Instructions .ROUTE .COMPLEX #360 ea 10/31/19 montelukast 10 mg tablet 10 mg PO DAILY #90 tab 02/09/20 glipizide 5 mg tablet, extended release 24 hr 5 mg PO .PM #90 tab 02/16/20 ropinirole 5 mg tablet 5 mg PO HS #90 tab 03/05/20 glipizide 2.5 mg tablet, extended release 24 hr 2.5 mg PO DAILY #90 tab 03/15/20 furosemide 40 mg tablet 40 mg PO DAILY #90 tab 03/29/20 insulin aspart U-100 100 unit/mL (3 mL) subcutaneous pen 10 unit SUBCUT AC #1 ml 04/20/20 insulin detemir U-100 100 unit/mL (3 mL) subcutaneous pen 30 unit SUBCUT DAILY #1 ml 04/20/20 blood sugar diagnostic See Rx Instructions .ROUTE .MEDSUPPLY #100 ea 04/21/20 lancets See Rx Instructions .ROUTE .MEDSUPPLY #100 ea 04/21/20 metformin 500 mg tablet,extended release 24hr 1,500 mg PO DAILY #270 tab 05/17/20
[2020-06-10 14:59] VITALS: BP 152/87
[2020-06-10] MEDS ORDERED: LIDOCAINE HCL 50 ML VIAL ONE (15:58)
== END 2020-06-10 15:32 | disposition home or self-care (01) ==
LOC: SCU 17:19 → ER 17:19 → SCU 20:24
PROVIDERS: ADMIT Family Medicine; ATTEND Internal Medicine